=== PATIENT | female | born 1975 | race Caucasian/White ===

== ENCOUNTER 2017-01-26 08:51 | Emergency (ER) | payer BC ==
[2017-01-26] MEDS ORDERED: ONDANSETRON 4 MG TAB.RAPDIS PO ONE (09:32)
[2017-01-26] MEDS ORDERED: OXYCODONE-ACETAMINOPHEN 5-325 MG TABLET PO ONE (09:32)
--- NOTE | 2017-01-26 09:43 | ER Document Report ---
ED Flu Like - General Chief Complaint: Flu Symptoms Stated Complaint: POSSIBLE FLU SYMPTOMS Notes: 41 yo female c/o body aches, fever, left sided chest pain x 2 days. pt describes pain as a "cramp" around my heart. hurts to cough, deep breathe. pt did not get a flu shot this year. pt reports was recently ill with similar symptoms, otherwise no known sick contacts. pt has hx/o "borderline" diabetic, but no meds. no hx/o HTN TRAVEL OUTSIDE OF THE [place] IN LAST 30 DAYS: No - HPI Timing/Duration: Constant Quality of pain: Achy Pain Level: 4 Shortness of breath: Mild Associated symptoms: Body/muscle aches, Chest pain, Nonproductive cough, Fever, Headache. denies: Nausea, Vomiting Similar symptoms previously: No Recently seen / treated by doctor: No - Related Data Allergies/Adverse Reactions: codeine Allergy (Verified 01/26/17 08:59) Past Medical History - General Information source: Patient - Social History Smoking Status: Current Some Day Smoker Frequency of alcohol use: None Drug Abuse: None Lives with: Spouse/Significant other Family History: Reviewed & Not Pertinent Patient has suicidal ideation: No Patient has homicidal ideation: No Endocrine Medical History: Reports: Hx Diabetes Mellitus Type 2 - borderline Surgical Hx: Negative Review of Systems - Review of Systems Constitutional: See HPI, Chills, Fever EENT: Nose congestion, Nose discharge, Sinus pressure Cardiovascular: See HPI - pleuritic in nature, Chest pain Respiratory: Cough, Hurts to breathe Gastrointestinal: No symptoms reported Genitourinary: No symptoms reported Female Genitourinary: No symptoms reported Musculoskeletal: No symptoms reported Skin: No symptoms reported Hematologic/Lymphatic: No symptoms reported Neurological/Psychological: No symptoms reported Physical Exam - Vital signs Vitals: Temp Pulse Resp BP Pulse Ox 101.9 F H 104 H 16 120/64 96 01/26/17 08:59 01/26/17 08:59 01/26/17 08:59 01/26/17 08:59 01/26/17 08:59 Interpretation: Tachycardic, Febrile - General General appearance: Alert In distress: Mild - mildly ill looking - HEENT Head: Normocephalic, Atraumatic Eyes: Normal Conjunctiva: Normal Pupils: PERRL Tympanic membrane: Normal Mouth/Lips: Normal Pharynx: Normal, Post nasal drainage. No: Potential airway comprom. Neck: Normal, Supple - Respiratory Respiratory status: No respiratory distress Chest status: Tender - left anterior chest wall, Pain with deep breathing. No: No pleuritic chest pain - + pleuritic chest pain Breath sounds: Normal Chest palpation: Normal - Cardiovascular Rhythm: Regular Heart sounds: Normal auscultation Murmur: No - Abdominal Inspection: Normal Distension: No distension Bowel sounds: Normal Tenderness: Nontender Organomegaly: No organomegaly - Back Back: Normal, Nontender - Extremities General upper extremity: Normal inspection, Nontender, Normal color, Normal ROM , Normal temperature General lower extremity: Normal inspection, Nontender, Normal color, Normal ROM , Normal temperature, Normal weight bearing. No: Xiomara's sign - Neurological Neuro grossly intact: Yes Cognition: Normal Orientation: AAOx4 [place] Coma Scale Eye Opening: Spontaneous [place] Coma Scale Verbal: Oriented [place] Coma Scale Motor: Obeys Commands [place] Coma Scale Total: 15 Speech: Normal Motor strength normal: LUE, RUE, LLE, RLE Sensory: Normal - Psychological Associated symptoms: Normal affect, Normal mood - Skin Skin Temperature: Warm Skin Moisture: Dry Skin Color: Normal Course - Re-evaluation Re-evalutation: 01/26/17 09:49 pt evaluated. H&P c/w viral illness. pt's chest discomfort is pleuritic in nature, hurts any deep breath or cough. EKG, CXR and rapid flu pending. pt medicated for discomfort. will continue to monitor 01/26/17 10:04 EKG showing NSR, rate 99. no ectopy. no ST elevation. results reviewed with patient 01/26/17 10:18 chest xray showing multilobar infiltrates left lung field. reviewed xray with Dr Mcelroy. Recommends coverage with PO Levaquin. First dose ordered now 01/26/17 10:48 rapid flu negative. pt ambulatory without difficulty. not hypoxic. Sat 96%. VSS pt stable for out patient treatment and agreeable with plan - Vital Signs Vital signs: Temp Pulse Resp BP Pulse Ox 101.9 F H 104 H 16 120/64 96 01/26/17 08:59 01/26/17 08:59 01/26/17 08:59 01/26/17 08:59 01/26/17 08:59 Discharge - Discharge Clinical Impression: Pneumonia Qualifiers: Pneumonia type: due to unspecified organism Laterality: left Lung location: unspecified part of lung Qualified Code(s): J18.9 - Pneumonia, unspecified organism Condition: Stable Disposition: HOME, SELF-CARE Instructions: Pneumonia ([facility]), Antibiotic Therapy ([facility]), Cough Suppressant & Expectorant Medications Additional Instructions: Your chest xray is showing 2 areas of pneumonia in your left lung I am treating you with an oral antibiotic and cough medication I recommend taking OTC Mucinex in addition to prescribed meds Rest and hydration are important to your recovery Please establish with a primary care provider Return to ER for any worsening of your status Prescriptions: Hydrocodone/Chlorphen P-Stirex [Tussionex Pennkinetic Susp] 10 ml PO BID PRN # 200 ml PRN Reason: Levofloxacin [Levaquin 750 mg Tablet] 750 mg PO DAILY #10 tablet Ondansetron HCl [Zofran 4 mg Tablet] 1 tab PO Q4H PRN #10 tablet PRN Reason:
[2017-01-26] MEDS ORDERED: LEVOFLOXACIN 750 MG TABLET PO ONE (10:19)
--- NOTE | 2017-01-26 10:51 | EKG REPORT ---
SEVERITY:- NORMAL ECG - SINUS RHYTHM : Confirmed by: Nicolasa Ridley 26-Jan-2017 10:50:11
[2017-01-26 11:18] VITALS: BP 127/74
== END 2017-01-26 11:18 | disposition home or self-care (01) ==
LOC: ER 08:51
DX: J18.9 Pneumonia, unspecified organism (principal); R07.81 Pleurodynia; M79.1 Myalgia; R05 Cough; R50.9 Fever, unspecified; R51 Headache; Z88.5 Allergy status to narcotic agent; F17.200 Nicotine dependence, unspecified, uncomplicated; R00.0 Tachycardia, unspecified
CPT/HCPCS: 93005; 99284; 87040; 87070; 87205; 87077; 87186; 87804; 71020; 93010; S0119

== ENCOUNTER 2017-09-28 10:21 | Observation (INO) | payer BC ==
--- NOTE | 2017-09-28 10:50 | ER Document Report ---
ED Medical Screen (RME) - General Chief Complaint: Breathing Difficulty Stated Complaint: DIFFICULTY BREATHING Time Seen by Provider: 09/28/17 10:48 Mode of Arrival: Ambulatory Information source: Patient TRAVEL OUTSIDE OF THE [place] IN LAST 30 DAYS: No - HPI Patient complains to provider of: sob Onset: Other - pt with c/o sob and recurrent cough for the past few days. Continues to smoke - Related Data Allergies/Adverse Reactions: codeine Allergy (Verified 09/28/17 10:22) Home Medications: Current Home Medications Unobtainable [Unobtainable] 09/28/17 [History] Past Medical History - Social History Chew tobacco use (# tins/day): No Frequency of alcohol use: None Drug Abuse: None Endocrine Medical History: Reports: Hx Diabetes Mellitus Type 2 - borderline Renal/ Medical History: Denies: Hx Peritoneal Dialysis Physical Exam - Vital signs Vitals: Temp Pulse Resp BP Pulse Ox 98.9 F 91 21 H 149/81 H 93 09/28/17 10:26 09/28/17 10:26 09/28/17 10:26 09/28/17 10:26 09/28/17 10:26 Course - Vital Signs Vital signs: Temp Pulse Resp BP Pulse Ox 98.9 F 91 21 H 149/81 H 93 09/28/17 10:26 09/28/17 10:26 09/28/17 10:26 09/28/17 10:26 09/28/17 10:26
--- NOTE | 2017-09-28 11:35 | RADIOLOGY REPORT (SQ) ---
EXAM DESCRIPTION: CHEST PA/LAT COMPLETED DATE/TIME: 09/28/2017 11:27 am REASON FOR STUDY: SOB COMPARISON: 10/28/2016 EXAM PARAMETERS: NUMBER OF VIEWS: two views TECHNIQUE: Digital Frontal and Lateral radiographic views of the chest acquired. RADIATION DOSE: NA LIMITATIONS: none FINDINGS: LUNGS AND PLEURA: Chronic changes at the left base. Right lung is clear. MEDIASTINUM AND HILAR STRUCTURES: No masses or contour abnormalities. HEART AND VASCULAR STRUCTURES: Heart normal size. No evidence for failure. BONES: No acute findings. HARDWARE: None in the chest. OTHER: No other significant finding. IMPRESSION: Chronic changes at the left base. TECHNICAL DOCUMENTATION: JOB ID: [id number] [employer]- All Rights Reserved
[2017-09-28 11:37] LABS: ABSOLUTE BASOPHILS # (AUTO) 0.1 10^3/uL (0.0-0.2); ABSOLUTE EOSINOPHILS # (AUTO) 0.3 10^3/uL (0.0-0.6); ABSOLUTE LYMPHOCYTES (AUTO) 1.4 10^3/uL (0.5-4.7); ABSOLUTE MONOCYTES (AUTO) 0.5 10^3/uL (0.1-1.4); ABSOLUTE NEUT (AUTO) 6.8 10^3/uL (1.7-8.2); BASOPHILS % (AUTO) 0.6 % (0-2); EOSINOPHILS % (AUTO) 3.1 % (0-6); HEMATOCRIT 37.9 % (36.0-47.0); HEMOGLOBIN 12.8 g/dL (12.0-15.5); HGB HCT DIFFERENCE 0.5; LYMPHOCYTES % (AUTO) 15.2 % (13-45); MEAN CORPUSCULAR HGB CONC 33.8 g/dL (32.0-36.0); MEAN CORPUSCULAR VOLUME 86 fl (80-97); MONOCYTES % (AUTO) 5.1 % (3-13); RED BLOOD COUNT 4.43 10^6/uL (3.72-5.28); WHITE BLOOD COUNT 8.9 10^3/uL (4.0-10.5)
[2017-09-28 11:40] LABS: APPEARANCE,URINE CLEAR; BILIRUBIN,URINE NEGATIVE (NEGATIVE); GLUCOSE, URINE NEGATIVE (NEGATIVE); KETONES,URINE NEGATIVE (NEGATIVE); LEUKOCYTE ESTERASE,URINE NEGATIVE (NEGATIVE); NITRITE,URINE NEGATIVE (NEGATIVE); PROTEIN,URINE NEGATIVE (NEGATIVE); URINE SPECIFIC GRAVITY 1.011; UROBILINOGEN,URINE NEGATIVE mg/dL (<2.0)
[2017-09-28 11:53] LABS: ALANINE AMINOTRANSFERASE 37 U/L (9-52); ALKALINE PHOSPHATASE 94 U/L (38-126); ANION GAP 14 (5-19); ASPARTATE AMINO TRANSFERASE 19 U/L (14-36); BILIRUBIN,DIRECT 0.5 mg/dL (0.0-0.4); BLOOD UREA NITROGEN 10 mg/dL (7-20); CALCIUM 9.5 mg/dL (8.4-10.2); CARBON DIOXIDE 25 mmol/L (22-30); CHLORIDE 102 mmol/L (98-107); CREATININE RESULT 0.69 mg/dL (0.52-1.25); GLUCOSE 120 mg/dL (75-110); POTASSIUM 4.4 mmol/L (3.6-5.0); SODIUM 141.2 mmol/L (137-145); TOTAL PROTEIN 7.5 g/dL (6.3-8.2)
[2017-09-28] MEDS ORDERED: METHYLPREDNISOLONE INJ 125 MG/2 ML SDV IV ONE (12:08)
--- NOTE | 2017-09-28 12:13 | ER Document Report ---
ED Respiratory Problem - General Chief Complaint: Breathing Difficulty Stated Complaint: DIFFICULTY BREATHING Time Seen by Provider: 09/28/17 10:48 Mode of Arrival: Ambulatory Information source: Patient Notes: 42-year-old female who states she has had some cough and congestion for the last week and a half. She actually states she has not felt better since being diagnosed last January with a pneumonia. Patient states over this last week she has not had any fevers but has had a greenish to davis cough without chest pain or leg swelling. She denies any orthopnea or paroxysmal nocturnal dyspnea. She denies any leg swelling. She denies any chest pain, recent trips or travel. Patient does admit to being a smoker. TRAVEL OUTSIDE OF THE [place] IN LAST 30 DAYS: No - HPI Patient complains to provider of: Cough, Short of breath Onset: Other - See above Duration: Better Initiating Event: Other - See above Quality of pain: No pain Severity: Mild Pain Level: 1 Context: Other - See above Short of Breath: Mild Cough: Productive Sputum amount: Scant Sputum color: Davis, Green At home treatment: denies: Bronchodilators Associated symptoms: Other - See above Similar symptoms previously: Yes Recently seen / treated by doctor: Yes - Related Data Allergies/Adverse Reactions: codeine Allergy (Verified 09/28/17 10:22) Home Medications: Current Home Medications Unobtainable [Unobtainable] 09/28/17 [History] Past Medical History - General Information source: Patient - Social History Smoking Status: Current Every Day Smoker Cigarette use (# per day): Yes Chew tobacco use (# tins/day): No Smoking Education Provided: Yes Frequency of alcohol use: None Drug Abuse: None Family History: Reviewed & Not Pertinent Patient has suicidal ideation: No Patient has homicidal ideation: No Endocrine Medical History: Reports: Hx Diabetes Mellitus Type 2 - borderline Renal/ Medical History: Denies: Hx Peritoneal Dialysis Review of Systems - Review of Systems Constitutional: denies: Fever EENT: Nose congestion, Nose discharge. denies: Eye discharge Cardiovascular: denies: Chest pain Respiratory: Cough, Short of breath, Sputum, Wheezing. denies: Hemoptysis Gastrointestinal: denies: Vomiting Genitourinary: denies: Dysuria Musculoskeletal: denies: Leg swelling Skin: Other - no hives. denies: Rash Neurological/Psychological: Other - no slurred speech -: Yes All other systems reviewed and negative Physical Exam - Vital signs Vitals: Temp Pulse Resp BP Pulse Ox 98.9 F 91 21 H 149/81 H 93 09/28/17 10:26 09/28/17 10:09/28/17 10:09/28/17 10:09/28/17 10: Notes: Reviewed vital signs and nursing note as charted by RN. CONSTITUTIONAL: Alert and oriented and responds appropriately to questions. Well -appearing; well-nourished HEAD: Normocephalic; atraumatic EYES: PERRL; Conjunctivae clear, sclerae non-icteric ENT: Normal nose; bilateral nonpurulent nasal rhinorrhea; moist mucous membranes ; pharynx without lesions noted NECK: Supple without meningismus; non-tender; no cervical lymphadenopathy, no masses CARD: Regular rate and rhythm; no murmurs, no clicks, no rubs, no gallops; symmetric distal pulses RESP: Normal chest excursion without splinting or tachypnea; breath sounds clear and equal bilaterally; minimal and expiratory wheezing without rales or rhonchi present ABD/GI: Normal bowel sounds; non-distended; soft, non-tender; no masses or palpable fluid wave. Elevated BMI BACK: The back appears normal and is non-tender to palpation, there is no CVA tenderness EXT: Normal ROM in all joints; non-tender to palpation; no cyanosis, no effusions, no edema SKIN: Normal color for age and race; warm; no acute lesions noted NEURO: Moves all extremities equally; Motor and sensory function intact PSYCH: The patient's mood and manner are appropriate. Grooming and personal hygiene are appropriate. Course - Re-evaluation Re-evalutation: Given the history and physical examination I will order an x-ray of the chest, basic labs, BNP, and reassess. I do believe that the patient has signs and symptoms of possibly acute bronchitis. I have had a talk with the patient about the importance of quitting smoking. Patient states she understands this that she has had multiple family members with COPD. 09/28/17 12:13 X-ray of the chest as recorded. 09/28/17 13:03 BNP is slightly elevated. X-ray of the chest shows a persistent left lower lobe abnormality. This is unchanged from the previous x-ray. The patient's left upper lobe abnormality has cleared since prior x-ray. Given the patient's prolonged symptomatology I will order a CT of the chest with IV contrast as well as an on an EKG. 09/28/17 14:33 EKG shows a heart of 86, normal sinus rhythm, normal axis, no obvious ST elevation or depression. 09/28/17 15:27 CT scan of the chest shows bilateral pleural effusions. Left lower lobe possible mass. Patient states she is unable to sleep laying flat at night. She states this has been worse over the last 3 days. I called and spoke to the security sme Dr. Guerrero, who states that he is able to see the patient in the hospital. I attempted to manage this more as an outpatient and even called a local physician here Dr. Blanton. He was concerned that it may take a prolonged amount of time to see and work up the patient as an outpatient. Family is not comfortable going home at this time. Patient will be admitted to the hospitalist service. - Vital Signs Vital signs: Temp Pulse Resp BP Pulse Ox 98.9 F 91 18 149/81 H 98 09/28/17 10:26 09/28/17 10:26 09/28/17 12:00 09/28/17 10:26 09/28/17 12:00 - Laboratory Result Diagrams: 09/28/17 11:15 09/28/17 11:15 Laboratory results interpreted by me: 09/28/17 09/28/17 09/28/17 11:15 11:15 11:15 RDW 15.0 H Glucose 120 H Direct Bilirubin 0.5 H NT-Pro-B Natriuret Pep Urine Blood SMALL H 09/28/17 11:15 RDW Glucose Direct Bilirubin NT-Pro-B Natriuret Pep 552 H Urine Blood Discharge - Discharge Clinical Impression: Bilateral pleural effusion, Mass of left lung Condition: Fair Disposition: ADMITTED INPATIENT Admitting Provider: Hospitalist Unit Admitted: Medical Floor
[2017-09-28] MEDS: IPRATROPIUM/ALBUTEROL 0.5-2.5 MG/3 ML AMPUL NEB SCH ×3 (12:16→13:05)
--- NOTE | 2017-09-28 13:43 | RADIOLOGY REPORT (SQ) ---
EXAM DESCRIPTION: CT CHEST WITH COMPLETED DATE/TIME: 09/28/2017 1:31 pm REASON FOR STUDY: 7, persistent cough and intermittent SOB with LLL COMPARISON: None. TECHNIQUE: CT scan of the chest performed using helical scanning technique with dynamic intravenous contrast injection. Images reviewed with lung, soft tissue and bone windows. Reconstructed coronal and sagittal MPR images reviewed. All images stored on PACS. All CT scanners at this facility use dose modulation, iterative reconstruction, and/or weight based d osing when appropriate to reduce radiation dose to as low as reasonably achievable (ALARA). [facility]: Dose Right [facility]: CareDose [facility]: Dose Right [facility]: Teradose 4D [facility]: Field Squared CONTRAST TYPE AND DOSE: contrast/concentration: Isovue 370.00 mg/ml; Total Contrast Delivered: 80.0 ml; Total Saline Delivered: 55.0 ml RENAL FUNCTION: None required. The patient is less than 50 years old. RADIATION DOSE: . LIMITATIONS: None. FINDINGS: LUNGS AND PLEURA: Moderate left pleural effusion. Small opacity at the left base. Minima l right pleural effusion. HILAR AND MEDIASTINAL STRUCTURES: No identified masses or abnormal nodes. HEART AND VASCULAR STRUCTURES: No aneurysm or dissection. No central pulmonary emboli. No pericardi al effusion. HARDWARE: None in the chest. UPPER ABDOMEN: No significant findings. Limited exam. THYROID AND OTHER SOFT TISSUES: No masses. No adenopathy. BONES: No significant finding. OTHER: No other significant finding. IMPRESSION: Moderate left pleural effusion with left basilar opacity. Minimal right pleural effusio n. TECHNICAL DOCUMENTATION: JOB ID: [id number] Quality ID # [id number]: Final reports with documentation of one or more dose reduction techniques (e.g., Au tomated exposure control, adjustment of the mA and/or kV according to patient size, use of iterative reconstruction technique) 2010 [employer]- All Rights Reserved
[2017-09-28] MEDS ORDERED: ACETAMINOPHEN 325 MG TABLET PO PRN (16:31)
--- NOTE | 2017-09-28 16:31 | PDOC H&P ---
History of Present Illness Admission Date/PCP: Date of admission 09/28/2017. The patient currently does not have a primary care provider. Patient complains of: Difficulty breathing and a chronic cough. History of Present Illness: CARLOTTA MARTE is a 42 year old female. She was well until January of this year. In January the patient woke up with a fever 1 day and began having a productive cough. Since January she has complained of a daily productive cough. She brings up ayala to green sputum. Occasionally, her sputum has brown flecks in it which she describes as coffee grounds but there is no bright red blood. Over the last 3 days the patient has had increasing shortness of breath. Her shortness of breath is associated with orthopnea and paroxysmal nocturnal dyspnea. She has been jerking herself awake at night because she is unable to breathe. In fact, she is afraid to sleep at night. She describes a headache on the top of her head. She feels as if her head is going to implode and not explode. She is also complaining of pain in the sides of her chest the lower ribs, she has anterior chest pain which is sharp in nature and worse with breathing or coughing. She has not had a fever during this current illness. She states that her symptoms are different than previous episodes of bronchitis. The patient is a current every day smoker. In the emergency department the patient had a CT scan that demonstrates bilateral effusions left greater than right. She also has an elevated BNP and she appears to have heart failure. Past Medical History Endocrine Medical History: Reports: Diabetes Mellitus Type 2 - borderline Psychiatric Medical History: Reports: General Anxiety Disorder, Other - Borderline personality disorder Past Surgical History Past Surgical History: Tonsillectomy, cholecystectomy, partial hysterectomy, mesh implant of the bladder and bilateral tubal ligation. Social History Smoking Status: Current Every Day Smoker Frequency of Alcohol Use: None Hx Recreational Drug Use: No Drugs: None Hx Prescription Drug Abuse: No - Advance Directive Resuscitation Status: Full Code Surrogate healthcare decision maker:: The patient elects for her , Toby Marte to be her surrogate decision maker. His phone number is area code [phone]. Family History Family History: Reviewed & Not Pertinent Parental Family History Reviewed: Yes Children Family History Reviewed: Yes Sibling(s) Family History Reviewed.: Yes - The patient's parents both of complications of emphysema. Her mother in her early 60s and her father in his late 70s. Her father also had secondary diabetes. Her mother had a history of congestive heart failure and her maternal grandmother had an SD in her late 70s. Medication/Allergy Home Medications: Unobtainable [Unobtainable] 09/28/17 Allergies/Adverse Reactions: codeine Allergy (Verified 09/28/17 10:22) Review of Systems Constitutional: ABSENT: chills, fever(s), headache(s), weight gain, weight loss Eyes: ABSENT: visual disturbances Ears: ABSENT: hearing changes Nose, Mouth, and Throat: ABSENT: as per HPI, headache(s), mouth pain, sore throat, vertigo, other Breasts: ABSENT: as per HPI, other Cardiovascular: PRESENT: as per HPI Respiratory: PRESENT: as per HPI Gastrointestinal: PRESENT: abdominal pain, bloating, constipation, diarrhea, other Genitourinary: ABSENT: dysuria, hematuria Musculoskeletal: ABSENT: joint swelling Integumentary: PRESENT: diaphoresis Neurological: ABSENT: abnormal gait, abnormal speech, confusion, dizziness, focal weakness, syncope Psychiatric: ABSENT: anxiety, depression, homidical ideation, suicidal ideation Endocrine: ABSENT: cold intolerance, heat intolerance, polydipsia, polyuria Hematologic/Lymphatic: ABSENT: easy bleeding, easy bruising Allergic/Immunologic: ABSENT: as per HPI, seasonal rhinorrhea, other Physical Exam Vital Signs: Temp Pulse Resp BP Pulse Ox 98.9 F 91 20 141/84 H 93 09/28/17 10:26 09/28/17 10:26 09/28/17 16:00 09/28/17 12:01 09/28/17 16:00 Intake & Output 09/27/17 09/28/17 09/29/17 06:59 06:59 06:59 Weight 130.8 kg Additional comments: The patient is a morbidly obese white female. She appears to be in mild distress. Her cheeks are noted to be severely flushed. Her facial appearance is otherwise normal. Her oropharynx demonstrates a Mallampati 3 airway. Her neck is supple. No JVD is present. Trachea is midline. Thyroid is nonpalpable. Her lungs are fairly clear anteriorly. She also has clear lung rodas posteriorly but her lung sounds are diminished in the bases left greater than right. The cardiac exam is distant but regular. I do not appreciate any murmurs, gallops or rubs. The abdomen is obese but soft. Bowel sounds are present. There is no guarding or rebound noted and there are no hernias or masses present. The lower extremities demonstrate trace to 1+ pitting edema. The skin is otherwise warm, dry and intact without lesions or rashes. Results Laboratory Results: 09/28/17 11:15 09/28/17 11:15 09/28/17 09/28/17 09/28/17 11:15 11:15 11:15 WBC 8.9 RBC 4.43 Hgb 12.8 Hct 37.9 MCV 86 MCH 29.0 MCHC 33.8 RDW 15.0 H Plt Count 291 Seg Neutrophils % 76.0 Lymphocytes % 15.2 Monocytes % 5.1 Eosinophils % 3.1 Basophils % 0.6 Absolute Neutrophils 6.8 Absolute Lymphocytes 1.4 Absolute Monocytes 0.5 Absolute Eosinophils 0.3 Absolute Basophils 0.1 Sodium 141.2 Potassium 4.4 Chloride 102 Carbon Dioxide 25 Anion Gap 14 BUN 10 Creatinine 0.69 Est GFR ( Amer) > 60 Est GFR (Non-Af Amer) > 60 Glucose 120 H Calcium 9.5 Total Bilirubin 1.0 AST 19 ALT 37 Alkaline Phosphatase 94 Total Protein 7.5 Albumin 4.0 Urine Color YELLOW Urine Appearance CLEAR Urine pH 6.0 Ur Specific [place] 1.011 Urine Protein NEGATIVE Urine Glucose (UA) NEGATIVE Urine Ketones NEGATIVE Urine Blood SMALL H Urine Nitrite NEGATIVE Ur Leukocyte Esterase NEGATIVE Urine WBC (Auto) 0 Urine RBC (Auto) 0 09/28/17 09/28/17 11:15 11:15 Troponin I < 0.012 NT-Pro-B Natriuret Pep 552 H Impressions: Chest X-Ray 09/28/17 10:48 IMPRESSION: Chronic changes at the left base. Chest CT 09/28/17 12:50 IMPRESSION: Moderate left pleural effusion with left basilar opacity. Minimal right pleural effusion. Assessment & Plan - Diagnosis (1) Atypical chest pain Is this a current diagnosis for this admission?: Yes (2) Uncontrolled hypertension Is this a current diagnosis for this admission?: Yes (3) Obstructive sleep apnea Is this a current diagnosis for this admission?: Yes (4) Morbid obesity Is this a current diagnosis for this admission?: Yes (5) Chronic bronchitis Is this a current diagnosis for this admission?: Yes (6) Bilateral pleural effusion Is this a current diagnosis for this admission?: Yes (7) Tobacco abuse Is this a current diagnosis for this admission?: Yes - Time Time Spent: 50 to 70 Minutes - Inpatient Certification Medical Necessity: Need Close Monitoring Due to Risk of Patient Decompensation, Risk of Complication if Not Cared For in Hospital, Risk of Diagnosis Which Will Require Inpatient Eval/Care/Monitoring - Plan Summary Plan Summary: The patient presents with what appears to be congestive heart failure. I suspect that this is diastolic in nature. This may be secondary to valvular heart disease. This may be secondary to her morbid obesity and presumed obstructive sleep apnea. The patient also may have a component of chronic bronchitis from tobacco abuse. The patient will be admitted to observation status. She will receive intravenous Lasix. She will be ruled out with cardiac enzymes as ischemia could be a precipitating factor. She will need an echocardiogram. I do not see a mass in the patient's CT scan, but, the emergency department physician has consulted Dr. Guerrero to determine if bronchoscopy is indicated. I would highly recommend that the patient be an panel to primary care provider at discharge. She will need management of her uncontrolled hypertension. I would strongly recommend that she have a sleep study. The patient does use [id number] ibuprofen on a very frequent basis and I told her that this could also aggravate diastolic congestive heart failure and hypertension. She is agreeable to discontinuing this medication. Smoking cessation counseling was provided as well.
[2017-09-28] MEDS ORDERED: HYDRALAZINE HCL INJ/PF 20 MG/1 ML SDV IV PRN (16:40)
--- NOTE | 2017-09-28 16:42 | Progress Note ---
Provider Note Provider Note: Patient was also noted to have hematuria on urinalysis. She is a smoker. I told her that this needs to be followed up after discharge and discussed with a primary care doctor.
[2017-09-28] MEDS ORDERED: FUROSEMIDE INJ/PF 20 MG/2 ML SDV IV ONE (17:30)
[2017-09-28] MEDS ORDERED: INFLUENZA ADLT QUAD (36MOS+) 2017-18 VAC 0.5 ML SYR IM PRN (20:29)
[2017-09-28] MEDS: FAMOTIDINE 20 MG TABLET PO SCH (21:11)
[2017-09-28] MEDS ORDERED: FUROSEMIDE INJ/PF 20 MG/2 ML SDV IV SCH (22:00)
--- NOTE | 2017-09-28 22:42 | EKG REPORT ---
SEVERITY:- ABNORMAL ECG - SINUS RHYTHM GIRMA, CONSIDER BIATRIAL ABNORMALITIES : Confirmed by: Nicolasa Ridley 28-Sep-2017 22:41:17
[2017-09-29 05:39] LABS: ANION GAP 12 (5-19); BLOOD UREA NITROGEN 17 mg/dL (7-20); CALCIUM 10.1 mg/dL (8.4-10.2); CARBON DIOXIDE 22 mmol/L (22-30); CHLORIDE 104 mmol/L (98-107); CREATININE RESULT 0.72 mg/dL (0.52-1.25); GLUCOSE 175 mg/dL (75-110); PHOSPHORUS 3.1 mg/dL (2.5-4.5); POTASSIUM 4.8 mmol/L (3.6-5.0); SODIUM 138.3 mmol/L (137-145)
--- NOTE | 2017-09-29 08:51 | EKG REPORT ---
SEVERITY:- BORDERLINE ECG - SINUS RHYTHM PROBABLE LEFT ATRIAL ABNORMALITY : Confirmed by: Nicolasa Ridley 29-Sep-2017 08:51:03
--- NOTE | 2017-09-29 09:06 | Physician Advisory Note ---
Physician Advisor ProgressNote .: Pursuant to the plan for [facility], I have reviewed the medical record for this patient. Physician Advisor Statement: Please consider documenting, if you agree: 1. "Acute CHF, suspect diastolic ..." - Attending has nicely documented evidence supporting acute CHF dx: PND, orthopnea, BLE edema. CT shows bilateral pleural effusions. BNP 552. Status: appropriately brought in as Outpt Obs. If pt continues to have significant clinical issues ongoing on 09/29, please document issues & attending concerns/pt risks. Thanks! CK
[2017-09-29] MEDS ORDERED: FAMOTIDINE 20 MG TABLET PO SCH (10:00)
[2017-09-29] MEDS ORDERED: ENOXAPARIN SODIUM INJ 40 MG/0.4 ML DISP.SYRIN SUBCUT SCH (10:00)
[2017-09-29] MEDS ORDERED: FUROSEMIDE INJ/PF 20 MG/2 ML SDV IV SCH (10:00)
[2017-09-29] MEDS: FAMOTIDINE 20 MG TABLET PO SCH (10:26)
--- NOTE | 2017-09-29 17:16 | XCELERA REPORT ---
[address] [address] Transthoracic Echocardiogram Report Name: CARLOTTA BAL Age: 42 yrs Gender: Female : 1975 Patient Status: Inpatient Patient Location: [address] [place] [address] Study Date: 09/29/2017 02:20 PM Height: 63 in Weight: 288 lb BSA: 2.3 m2 Procedure: A two-dimensional transthoracic echocardiogram with color flow and Doppler was performed. The study was technically limited with all images being suboptimal in quality. Reason For Study: CHF History: CHF. Ordering Physician: YOVANI CASTILLO Performed By: Shagufta Sampson Interpretation Summary The left ventricle is normal in size. There is normal left ventricular wall thickness. LV EF is > tthan 60% Left ventricular systolic function is normal. Doppler measurements suggest normal left ventricular diastolic function The left ventricular wall motion is normal. There is no thrombus. The right ventricle is not well visualized secondary to technical limitations The left and right artia are mildly dilated There is no evidence of mitral valve prolapse. There is no vegetation seen on the mitral valve. There is mild mitral stenosis There is a mild amount of mitral regurgitation There is no aortic valve stenosis There is no LVOT obstruction. There is no tricuspid stenosis. Poor doppler interogation of tricuspid valve.Probably mild TR.No TR jet measurement ,hence RVSP not calculated. There is no pericardial effusion. MMode/2D Measurements & Calculations RVDd: 3.3 cm LVIDd: 5.7 cm FS: 40.4 % Ao root diam: 2.4 cm IVSd: 1.0 cm LVIDs: 3.4 cm EDV(Teich): 157.0 ml LVPWd: 0.99 cm ESV(Teich): 46.3 ml Ao root area: 4.6 cm2 EF(Teich): 70.5 % LA dimension: 4.4 cm Doppler Measurements & Calculations MV E max tomasz: MV P1/2t max tomasz: Ao V2 max: LV V1 max P.7 cm/sec 244.7 cm/sec 155.6 cm/sec 6.5 mmHg MV A max tomasz: MV P1/2t: 139.8 msec Ao max PG: LV V1 max: 192.0 cm/sec 9.7 mmHg 127.8 cm/sec MV E/A: 1.3 MVA(P1/2t): 1.6 cm2 MV dec slope: 512.8 cm/sec2 PA V2 max: 99.7 cm/sec PA max P.0 mmHg Left Ventricle The left ventricle is normal in size. There is normal left ventricular wall thickness. LV EF is > tthan 60%. Left ventricular systolic function is normal. Doppler measurements suggest normal left ventricular diastolic function. The left ventricular wall motion is normal. There is no thrombus. Right Ventricle The right ventricle is not well visualized secondary to technical limitations. Atria Right atrium not well visualized secondary to technical limitations. The left and right artia are mildly dilated. Mitral Valve There is mild to moderate mitral annular calcification. There is no evidence of mitral valve prolapse. There is no vegetation seen on the mitral valve. There is mild mitral stenosis. There is a mild amount of mitral regurgitation. Aortic Valve There is no aortic valvular vegetation. There is no aortic valve stenosis. There is no LVOT obstruction. No aortic regurgitation is present. Tricuspid Valve There is no tricuspid stenosis. Poor doppler interogation of tricuspid valve.Probably mild TR.No TR jet measurement ,hence RVSP not calculated. Pulmonic Valve There is no pulmonic valvular stenosis. There is no pulmonic valvular regurgitation. Great Vessels The aortic root is not well visualized but is probably normal size. Effusions There is no pericardial effusion. : YOVANI CASTILLO > Lily Callahan
--- NOTE | 2017-09-29 17:49 | PDOC DISCHARGE SUMMARY ---
General - Admit/Disc Date/PCP Admission Date/Primary Care Provider: 09/28/17 16:48 Discharge Date: 09/29/17 - Discharge Diagnosis (1) Atypical chest pain Is this a current diagnosis for this admission?: Yes (2) Uncontrolled hypertension Is this a current diagnosis for this admission?: Yes (3) Obstructive sleep apnea Is this a current diagnosis for this admission?: Yes (4) Morbid obesity Is this a current diagnosis for this admission?: Yes (5) Chronic bronchitis Is this a current diagnosis for this admission?: Yes (6) Bilateral pleural effusion Is this a current diagnosis for this admission?: Yes (7) Tobacco abuse Is this a current diagnosis for this admission?: Yes (8) Hematuria Is this a current diagnosis for this admission?: Yes (9) Abnormal TSH Is this a current diagnosis for this admission?: Yes - Additional Information Resuscitation Status: Full Code Discharge Diet: Cardiac Discharge Activity: Activity As Tolerated, Balance Activity w/Rest, Weigh Daily Home Medications: Furosemide [Lasix 20 mg Tablet] 20 mg PO DAILY 14 Days #14 tablet 09/29/17 Omeprazole 20 mg PO QHS 09/29/17 History of Present Illness History of Present Illness: CARLOTTA BAL is a 42 year old female. She was well until January of this year. In January the patient woke up with a fever 1 day and began having a productive cough. Since January she has complained of a daily productive cough. She brings up ayala to green sputum. Occasionally, her sputum has brown flecks in it which she describes as coffee grounds but there is no bright red blood. Over the last 3 days the patient has had increasing shortness of breath. Her shortness of breath is associated with orthopnea and paroxysmal nocturnal dyspnea. She has been jerking herself awake at night because she is unable to breathe. In fact, she is afraid to sleep at night. She describes a headache on the top of her head. She feels as if her head is going to implode and not explode. She is also complaining of pain in the sides of her chest the lower ribs, she has anterior chest pain which is sharp in nature and worse with breathing or coughing. She has not had a fever during this current illness. She states that her symptoms are different than previous episodes of bronchitis. The patient is a current every day smoker. In the emergency department the patient had a CT scan that demonstrates bilateral effusions left greater than right. She also has an elevated BNP and she appears to have heart failure. Hospital Course Hospital Course: The patient was admitted with uncontrolled hypertension. She had evidence of bilateral pleural effusions likely secondary to volume overload from uncontrolled hypertension. She ruled out for myocardial infarction by cardiac enzymes (troponins). The patient did have an echocardiogram performed. This did demonstrate an elevated ejection fraction greater than 60%, however, there was not evidence of diastolic dysfunction. Patient was noted to have mild mitral stenosis. During this hospitalization the patient has several factors that indicate that she likely has obstructive sleep apnea. This was discussed with the patient. I have recommended that she have a sleep study after discharge. Laboratory data are significant for a mildly reduced TSH. I would recommend repeating this in 4-6 weeks. The patient was also told that she has microscopic hematuria. Because she is a smoker this will also need to be followed up. During this hospitalization the patient had both a chest x-ray and a CT scan. The patient has bilateral pleural effusions left greater than right. She appears to have a component of atelectasis in the left base. This does not appear to be a lung mass. However, we will have the patient follow-up with Dr. Guerrero, a chemistry technical officer after discharge. The patient may also have a component of chronic bronchitis. She is a long-term smoker. She may benefit from pulmonary function testing and use of bronchodilators. In addition, as stated above I highly recommend that the patient get a sleep study. The patient will also need to be empanelled to a primary care provider if she has none at this time. The patient was counseled on tobacco cessation. Due to the bilateral pleural effusions I will discharge her on Lasix. She had a very good response to intravenous Lasix last night. I will not add supplemental potassium since her potassium this morning is 4.8. Physical Exam Vital Signs: Temp Pulse Resp BP Pulse Ox 98.2 F 62 18 139/72 H 95 09/29/17 11:57 09/29/17 14:00 09/29/17 11:57 09/29/17 11:57 09/29/17 17:11 Intake & Output 09/28/17 09/29/17 09/30/17 06:59 06:59 06:59 Intake Total 3449 458 Balance 1077 458 Weight 130.4 kg Additional comments: The patient is an obese white female. She is extremely pleasant. She does not appear to be in any distress. She states that she is feeling better when compared to last evening. Her face continues to be flushed, but otherwise it is normal. Her lungs are significantly improved. She has less rales when compared to last evening. Her cardiac exam is regular without murmurs, gallops or rubs. The abdomen is obese but soft. Bowel sounds are present in all 4 quadrants. The lower extremities are warm to touch. The patient has 1+ edema. Skin is warm, dry and intact without lesions or rashes. Results Laboratory Results: 09/29/17 05:10 09/29/17 09/29/17 05:10 05:10 Sodium 138.3 Potassium 4.8 Chloride 104 Carbon Dioxide 22 Anion Gap 12 BUN 17 Creatinine 0.72 Est GFR ( Amer) > 60 Est GFR (Non-Af Amer) > 60 Glucose 175 H Calcium 10.1 Phosphorus 3.1 TSH 0.45 L 09/28/17 09/28/17 09/29/17 17:00 23:00 05:10 Troponin I < 0.012 < 0.012 < 0.012 Impressions: Chest X-Ray 09/28/17 10:48 IMPRESSION: Chronic changes at the left base. Chest CT 09/28/17 12:50 IMPRESSION: Moderate left pleural effusion with left basilar opacity. Minimal right pleural effusion. Plan Discharge Plan: 1. The patient was counseled to follow a low-sodium diet. 2. The patient will need an appointment with a primary care provider in 1 week. The hospital will arrange this. 3. We will also arrange for the patient to see Dr. Guerrero regarding the findings on her chest CT scan. 4. The patient will be started on Lasix 20 mg p.o. once daily. She was not started on supplemental potassium secondary to a high normal potassium level during hospitalization. She will require laboratory follow-up. I anticipate that this medication will be changed to an alternate agent upon discharge and she will only be given a prescription for 14 days. Time Spent: Less than 30 Minutes
[2017-09-29 18:22] VITALS: BP 142/80
[2017-09-30] MEDS ORDERED: FUROSEMIDE 20 MG TABLET PO SCH (10:00)
== END 2017-09-29 19:00 | disposition home or self-care (01) ==
LOC: ER 10:21 → EH 16:48 → INTOOBSV 16:48 → 3S 20:27
PROVIDERS: ADMIT Internal Medicine; ATTEND Internal Medicine
DX: R07.89 Other chest pain (principal); I10 Essential (primary) hypertension; G47.33 Obstructive sleep apnea (adult) (pediatric); E66.01 Morbid (severe) obesity due to excess calories; J42 Unspecified chronic bronchitis; J90 Pleural effusion, not elsewhere classified; R31.29 Other microscopic hematuria; R94.6 Abnormal results of thyroid function studies; I05.0 Rheumatic mitral stenosis; F17.200 Nicotine dependence, unspecified, uncomplicated; R10.9 Unspecified abdominal pain; R14.0 Abdominal distension (gaseous); K59.00 Constipation, unspecified; R19.7 Diarrhea, unspecified; R23.2 Flushing; Z79.899 Other long term (current) drug therapy; Z90.49 Acquired absence of other specified parts of digestive tract; Z90.710 Acquired absence of both cervix and uterus; Z98.51 Tubal ligation status; Z96.0 Presence of urogenital implants; Z82.49 Family history of ischemic heart disease and other diseases of the circulatory system; Z83.3 Family history of diabetes mellitus; Z82.5 Family history of asthma and other chronic lower respiratory diseases; Z87.01 Personal history of pneumonia (recurrent); Z68.43 Body mass index [BMI] 50.0-59.9, adult
CPT/HCPCS: 93005 ×2; 94640 ×2; 99285; 96374; 36415 ×2; 84100; 84443; 85025; 80048; 80053; 81001; 84484 ×2; 83036; 87804; 83880; 93306; 71020; 71260; 93010 ×2; G0378 ×3; J1940 ×2; J2930; J1650; J3490 ×2; J7620

== ENCOUNTER → 2017-11-04 | Outpatient (CLI) | payer BC ==
[2017-11-04 12:11] LABS: ABSOLUTE BASOPHILS # (AUTO) 0.1 10^3/uL (0.0-0.2); ABSOLUTE EOSINOPHILS # (AUTO) 0.2 10^3/uL (0.0-0.6); ABSOLUTE LYMPHOCYTES (AUTO) 1.4 10^3/uL (0.5-4.7); ABSOLUTE MONOCYTES (AUTO) 0.5 10^3/uL (0.1-1.4); ABSOLUTE NEUT (AUTO) 8.1 10^3/uL (1.7-8.2); BASOPHILS % (AUTO) 0.9 % (0-2); EOSINOPHILS % (AUTO) 1.7 % (0-6); HEMOGLOBIN 13.9 g/dL (12.0-15.5); LYMPHOCYTES % (AUTO) 13.5 % (13-45); MEAN CORPUSCULAR HEMOGLOBIN 29.1 pg (27.0-33.4); MEAN CORPUSCULAR HGB CONC 33.8 g/dL (32.0-36.0); MEAN CORPUSCULAR VOLUME 86 fl (80-97); MONOCYTES % (AUTO) 5.2 % (3-13); PLATELET COUNT 349 10^3/uL (150-450); RED BLOOD COUNT 4.77 10^6/uL (3.72-5.28); RED CELL DISTRIBUTION WIDTH 14.6 % (11.5-14.0); SEGMENTED NEUTROPHILS % (AUTO) 78.7 % (42-78); TOTAL CELLS COUNTED % (AUTO) 100 %; WHITE BLOOD COUNT 10.3 10^3/uL (4.0-10.5)
[2017-11-04 12:56] LABS: FREE T4 (FREE THYROXINE) 1.15 ng/dL (0.78-2.19)
[2017-11-04 13:10] LABS: THYROID STIMULATING HORMONE 1.1 uIU/mL (0.47-4.68)
--- NOTE | 2017-11-04 15:12 | RADIOLOGY REPORT (SQ) ---
EXAM DESCRIPTION: CHEST PA/LATERAL COMPLETED DATE/TIME: 11/04/2017 12:22 pm REASON FOR STUDY: PLEURAL EFFUSION, NOT ELSEWHERE CLASSIFIED COMPARISON: 09/28/2017 EXAM PARAMETERS: NUMBER OF VIEWS: two views TECHNIQUE: Digital Frontal and Lateral radiographic views of the chest acquired. RADIATION DOSE: NA LIMITATIONS: none FINDINGS: LUNGS AND PLEURA: Small left pleural effusion, unchanged. Right lung is clear. MEDIASTINUM AND HILAR STRUCTURES: No masses or contour abnormalities. HEART AND VASCULAR STRUCTURES: Heart normal size. No evidence for failure. BONES: No acute findings. HARDWARE: None in the chest. OTHER: No other significant finding. IMPRESSION: Small left pleural effusion. TECHNICAL DOCUMENTATION: JOB ID: [id number] [employer]- All Rights Reserved
[2017-11-05 05:40] LABS: THYROXINE (T4) 7.7 ug/dL (4.5-12.0)
[2017-11-05 07:38] LABS: TRIIODOTHYRONINE (T3) 93 ng/dL (71-180)
== END ==
LOC: OD 10:48
PROVIDERS: ATTEND Physician Assistant
DX: J90 Pleural effusion, not elsewhere classified (principal); R94.6 Abnormal results of thyroid function studies; R05 Cough; J41.1 Mucopurulent chronic bronchitis
CPT/HCPCS: 36415; 71046; 84436; 84439; 84443; 84480; 85025; 87015; 87070; 87116; 87205; 87206

== ENCOUNTER → 2017-11-13 | Outpatient (CLI) | payer BC ==
--- NOTE | 2017-11-13 09:01 | ST Modified Barium Swallow ---
Recommendation - Recommendations Recommendations: No oral or pharyngeal swallowing deficits seen. May benefit from gastrointestinal consult due to nature of symptoms. Medical Diagnoses - Medical Diagnoses Medical Diagnosis Description & ICD-10 Code(s): R13.10 dysphagia unspecified Other Medical Diagnoses/Co-Morbidities: Patient reports bilateral pleural effusion and reflux. ST Modified Barium Swallow - General Date: 11/13/17 Risks/Precautions: None Reason for Referral: globus sensation, coughing after meals - History History obtained from: Patient -: Medical - Patient reports feeling of foods "sticking" in her throat, pointed to area just below the larynx. Specific foods that increase difficulties are popcorn, lettuce, and dry bread products. Also reports that at times she coughs after meals (1 hour) and food particles will come up. The patient states that she takes a daily acid telemetry tech, and that she was placed on 2 inhalers yesterday due to diagnosis of bilateral pleural effusion, first seen in September. Medications: Patient reports 2 inhalers, unable to give names, and daily acid telemetry tech, Omeprazole. Not a complete medication list. Allergies: per EMR: codeine. No food allergies reported. - Functional Status Prior Functional Status: INDEPENDENT: feeding - independent - Subjective Patient/caregiver goal(s): r/o aspiration Cognitive-Linguistic Function: WNL Speech Intelligibility: WNL Current Nutritional Means: PO Current PO diet: Regular Current symptoms: Coughing, c/o Globus sensation Pain: Patient reports, 0/5 - Objective Assessment: Upright, Left Lateral - Food Trials Used Food trials used: Thin liquids, Pureed, Regular The patient: Was Able to Self Feed - Oral-Motor Skills Dentition: Full Laryngeal Function: Volitional Cough - WFL, Volitional Swallow - WFL - Assessment Oral prep: Normal Labial closure: Adequate Leakage: None Mastication: Adequate Lingual Movement: Normal Oral stage: Normal for this Procedure - Pharyngeal Stage Initiation of Pharyngeal Stage Reflex: Normal Decreased laryngeal elevation: No Reduced Velopharyngeal Closure: no Reduced pressure generation: No reduced tongue-based retraction: No Pre-swallow pooling in valleculae: None Pre-Swallow pooling in pyriforms: None Reduced Thyro-Hyoid approximation: No Reduced epiglottic excursion: No Reduced pharyngeal peristalsis/contraction: No Post-swallow residulas vallecular: None Post-Swallow residuals in pyriforms: None Post-Swallow Residuals: no residuals Reduced Cricopharyngeal opening: No - Fall Risk Assessment Medications/Conditions that increase fall risks include: Antidepressants, sedatives, anti-arrhythmic, diuretic, benzodiazipenes, neuroleptics. BP regulation problems, cardiac problems, balance or gait deficits, neurological problems. Fall Risk Actions Taken: No action needed - Behavioral Observations During evaluation process patient: was cooperative, able to answer questions, provided medical history - Treatment / Educational Needs: Treatment/Education Needs: Treatment consisted of patient education on the role of the Speech Pathologist. Patient's plan of care and golas were communicated as well as scheduling and attendance policies. Recommendations for initial home program were shared. Patient demonstrated understanding and verbalized agreement. - Impression/Summary Laryngeal Penetration: No Tracheal Aspiration: no Patient presents with: Normal swallow at eval Risk of Aspiration: Minimal Evaluation and Findings: Patient presents with no oral or pharyngeal swallowing deficits. Due to nature of symptoms, patient may benefit from gastrointestinal consult. General reflux precautions discussed with patient this day. - Recommendations Solid diet recommendations: Regular Liquid Diet Modification: Thin Pt/Family education and followup with MD: Yes Dysphagia therapy with ASSISTANT CHILD CARE TEACHER: no Reflux Precautions: Taught to Patient Recommended techniques: Fully Upright During Meal, Small Bites and Sips Information, Precautions and Recommendations: Patient (Written), Patient (Verbal ) - Plan of Care Strategies to optimize patient understanding include:: ongoing assessment of educational needs, implementation of educational strategies, and re-education. - - -: Thank you for the opportunity to work with this patient and his/her family. Should you have any questions about this patient's plan or progress, I can be reached at [phone]. Charge G Code? - - -: No
--- NOTE | 2017-11-13 11:45 | RADIOLOGY REPORT (SQ) ---
EXAM DESCRIPTION: PEDRO LUIS SWALLOW COMPLETED DATE/TIME: 11/13/2017 8:56 am REASON FOR STUDY: DYSPHAGIA R13.10 DYSPHAGIA, UNSPECIFIED COMPARISON: None. TECHNIQUE: Videofluoroscopic swallowing examination was performed in conjunction with speech patholo gy. Videofluoroscopic imaging was obtained and reviewed and these are the findings: RADIATION DOSE: Total fluoroscopy time: 1 minutes 46 seconds 1 fluoroscopy image saved to PACS. LIMITATIONS: None FINDINGS: The patient was brought into the fluoro room and placed upright on a modified barium swall ow chair. The patient was then given multiple consistencies mixed with barium to swallow under live fluoroscopic video guidance. According to the Speech Pathologist there was no laryngeal penetration or tracheal aspiration. Normal oral and pharyngeal transit time was observed. No significant post s wallow residual was seen. Please see speech pathology report for further details and recommendations . IMPRESSION: NO EVIDENCE OF LARYNGEAL PENETRATION OR TRACHEAL ASPIRATION.PLEASE SEE SPEECH PATHOLOGIS T REPORT FOR OTHER FINDINGS AND RECOMMENDATIONS. COMMENT: Quality ID [id number]: Final reports for procedures using fluoroscopy that document radiation exp osure indices, or exposure time and number of fluorographic images (if radiation exposure indices are not available) TECHNICAL DOCUMENTATION: JOB ID: [id number] [facility]- All Rights Reserved
== END ==
LOC: RAD 08:07
PROVIDERS: ATTEND Physician Assistant
DX: R13.10 Dysphagia, unspecified (principal); K21.9 Gastro-esophageal reflux disease without esophagitis; J90 Pleural effusion, not elsewhere classified
CPT/HCPCS: 74230

== ENCOUNTER 2017-12-12 07:24 | Day surgery (SDC) | payer BC ==
[2017-12-12 08:09] LABS: HEMATOCRIT 39.3 % (36.0-47.0); HEMOGLOBIN 13.3 g/dL (12.0-15.5); MEAN CORPUSCULAR HEMOGLOBIN 29.2 pg (27.0-33.4); MEAN CORPUSCULAR HGB CONC 33.9 g/dL (32.0-36.0); MEAN CORPUSCULAR VOLUME 86 fl (80-97); PLATELET COUNT 284 10^3/uL (150-450); RED BLOOD COUNT 4.56 10^6/uL (3.72-5.28); RED CELL DISTRIBUTION WIDTH 15.1 % (11.5-14.0); WHITE BLOOD COUNT 9.1 10^3/uL (4.0-10.5)
[2017-12-12 08:15] LABS: INTERNATIONAL RATION (INR) 0.89; PROTHROMBIN TIME 12.8 SEC (11.4-15.4)
[2017-12-12 08:16] LABS: PARTIAL THROMBOPLASTIN TIME 30.2 SEC (23.5-35.8)
[2017-12-12 08:24] LABS: BLOOD UREA NITROGEN 20 mg/dL (7-20)
[2017-12-12 09:27] LABS: ABSOLUTE LYMPHOCYTES# (MANUAL) 1.3 10^3/uL (0.5-4.7); ABSOLUTE MONOCYTES # (MANUAL) 0.8 10^3/uL (0.1-1.4); ABSOLUTE NEUTROPHILS# (MANUAL) 6.7 10^3/uL (1.7-8.2); BASOPHILS % (MANUAL) 0 % (0-2); EOSINOPHILS % (MANUAL) 3 % (0-6); LYMPHOCYTES % (MANUAL) 14 % (13-45); MONOCYTES % (MANUAL) 9 % (3-13); SEGMENTED NEUTROPHILS % (MAN) 74 % (42-78); TOTAL CELLS COUNTED 100
[2017-12-12 09:28] LABS: ANISOCYTOSIS SLIGHT; OVALOCYTES SLIGHT; PLATELET COMMENT ADEQUATE; POIKILOCYTOSIS SLIGHT; STOMATOCYTES SLIGHT
--- NOTE | 2017-12-12 10:30 | RADIOLOGY REPORT (SQ) ---
EXAM DESCRIPTION: CHEST SINGLE VIEW COMPLETED DATE/TIME: 12/12/2017 10:20 am REASON FOR STUDY: S/P LEFT THORACENTESIS COMPARISON: Two-view chest 09/28/2017, 11/04/2017 CT chest 09/28/2017 Thoracentesis today EXAM PARAMETERS: NUMBER OF VIEWS: One view. TECHNIQUE: Single frontal radiographic view of the chest acquired. RADIATION DOSE: NA LIMITATIONS: None. FINDINGS: LUNGS AND PLEURA: Post left thoracentesis, with removal of 350 mL of straw-colored fluid f rom the left chest posterior approach. There is no pneumothorax post left thoracentesis. No residua l pleural fluid by plain film. MEDIASTINUM AND HILAR STRUCTURES: No masses. Contour normal. HEART AND VASCULAR STRUCTURES: Stable mild cardiomegaly BONES: No acute findings. HARDWARE: None in the chest. OTHER: No other significant finding. IMPRESSION: No pneumothorax post left thoracentesis TECHNICAL DOCUMENTATION: JOB ID: [id number] [employer]- All Rights Reserved
[2017-12-12 10:39] LABS: TOTAL PROTEIN 7.5 g/dL (6.3-8.2)
[2017-12-12 10:40] LABS: ALBUMIN 4.1 g/dL (3.5-5.0); ANION GAP 11 (5-19); BLOOD UREA NITROGEN 19 mg/dL (7-20); CALCIUM 9.5 mg/dL (8.4-10.2); CARBON DIOXIDE 23 mmol/L (22-30); CHLORIDE 106 mmol/L (98-107); GLUCOSE 134 mg/dL (75-110); PHOSPHORUS 4.1 mg/dL (2.5-4.5); POTASSIUM 4.6 mmol/L (3.6-5.0); SODIUM 139.9 mmol/L (137-145)
--- NOTE | 2017-12-12 10:55 | RADIOLOGY REPORT (SQ) ---
EXAM DESCRIPTION: U/S THORACENTESIS WITH IMAGING COMPLETED DATE/TIME: 12/12/2017 10:13 am REASON FOR STUDY: PLEURAL EFFUSION J90 PLEURAL EFFUSION, NOT ELSEWHERE CLASSIFIED COMPARISON: Chest film 11/04/2017, 09/28/2017 CT chest 09/28/2017 LIMITATIONS: None. PROCEDURE: Procedure, risks, benefit, and alternative explained to patient who then gave written con sent. The posterior left chest wall was marked using ultrasound guidance. A time-out was called for correct marking verification. Chest prepped and draped using sterile technique. Local anesthesia ac hieved using 10 ml of 1% lidocaine injection. A choose 1 was introduced into the posterior left pleu ral space pleural space. Fluid was aspirated. The catheter was removed and the entry site was cover ed with sterile bandage. No immediate complications noted. Post procedure chest x-ray dictated separ ately demonstrates no pneumothorax. Images acquired during the procedure were stored on PACS. FINDINGS: ENTRY SITE: Left posterior pleural space FLUID VOLUME: 350 mL of clear yellow fluid FLUID ANALYSIS: Yes, sent for testing as per the ordering physician OTHER: No immediate complication on post procedure chest film dictated separately IMPRESSION: SUCCESSFUL THORACENTESIS USING ULTRASOUND GUIDANCE. COMMENT: Patient medication list reviewed: Yes- Quality ID# [id number]:Eligible professional attests to doc umenting in the medical record they obtained, updated, or reviewed the patient's current medications. Quality ID #145: Final reports for procedures using fluoroscopy that document radiation exposure judy hannah, or exposure time and number of fluorographic images (if radiation exposure indices are not avail able) TECHNICAL DOCUMENTATION: JOB ID: [id number] [employer]- All Rights Reserved
[2017-12-12] MEDS ORDERED: HYDROCODONE/ACETAMINOPHEN 5-325 MG TABLET ONE (11:10)
[2017-12-12 11:31] LABS: FLUID APPEARANCE SLIGHTLY HAZY; FLUID COLOR LIGHT YELLOW; FLUID SOURCE LUNG; FLUID TYPE PLEURAL; FLUID VISCOSITY LIQUID
--- NOTE | 2017-12-12 12:47 | RADIOLOGY REPORT (SQ) ---
EXAM DESCRIPTION: CHEST SINGLE VIEW COMPLETED DATE/TIME: 12/12/2017 12:38 pm REASON FOR STUDY: 2 HOURS S/P LEFT THORACENTESIS COMPARISON: 12/12/2017, 1020 hours EXAM PARAMETERS: NUMBER OF VIEWS: One view. TECHNIQUE: Single frontal radiographic view of the chest acquired. RADIATION DOSE: NA LIMITATIONS: None. FINDINGS: LUNGS AND PLEURA: 2 hours post left thoracentesis. No pneumothorax. Lungs are clear. No pleural effusions. MEDIASTINUM AND HILAR STRUCTURES: No masses. Contour normal. HEART AND VASCULAR STRUCTURES: Stable mild cardiomegaly BONES: No acute findings. HARDWARE: None in the chest. OTHER: No other significant finding. IMPRESSION: No pneumothorax 2 hours post left thoracentesis. TECHNICAL DOCUMENTATION: JOB ID: [id number] [employer]- All Rights Reserved Reading location - IP/workstation name: [email or web address]
[2017-12-12 13:05] VITALS: BP 105/60
[2017-12-13 13:57] LABS: TOTAL PROTEIN BODY FLUID 3.6 g/dL (.)
== END 2017-12-12 13:00 | disposition home or self-care (01) ==
LOC: RAD 07:24
PROVIDERS: ATTEND Physician Assistant
PROC: 0W983ZZ Drainage of Chest Wall, Percutaneous Approach (ICD-10-PCS; principal; 2017-12-12)
DX: J90 Pleural effusion, not elsewhere classified (principal); J44.9 Chronic obstructive pulmonary disease, unspecified; Z68.43 Body mass index [BMI] 50.0-59.9, adult; G47.19 Other hypersomnia; R13.10 Dysphagia, unspecified
CPT/HCPCS: 32555; 36415; 71045; 80069; 82565; 82945; 83615; 84155; 84157; 84520; 85025; 85610; 85730; 87015; 87070; 87075; 87101; 87116; 87205; 87206; 88305; 89050

== ENCOUNTER → 2018-02-06 | Outpatient (CLI) | payer BC ==
--- NOTE | 2018-02-06 09:17 | RADIOLOGY REPORT (SQ) ---
EXAM DESCRIPTION: CHEST PA/LATERAL COMPLETED DATE/TIME: 02/06/2018 9:01 am REASON FOR STUDY: COUGH COMPARISON: 12/12/2017. EXAM PARAMETERS: NUMBER OF VIEWS: two views TECHNIQUE: Digital Frontal and Lateral radiographic views of the chest acquired. RADIATION DOSE: NA LIMITATIONS: none FINDINGS: LUNGS AND PLEURA: No opacities, masses or pneumothorax. Interval development of small lef t pleural effusion. Pleural effusion. MEDIASTINUM AND HILAR STRUCTURES: No masses or contour abnormalities. HEART AND VASCULAR STRUCTURES: Heart normal size. No evidence for failure. BONES: No acute findings. HARDWARE: None in the chest. OTHER: No other significant finding. IMPRESSION: INTERVAL DEVELOPMENT OF SMALL LEFT PLEURAL EFFUSION. TECHNICAL DOCUMENTATION: JOB ID: [id number] [employer]- All Rights Reserved Reading location - IP/workstation name: [email or web address]
== END ==
LOC: OD 08:51
PROVIDERS: ATTEND Physician Assistant
DX: R05 Cough (principal)
CPT/HCPCS: 71046

== ENCOUNTER 2018-03-04 00:01 | Emergency (ER) | payer BC ==
[2018-03-04] MEDS ORDERED: ASPIRIN 81 MG TABLET, CHEWABLE PO ONE (01:18)
[2018-03-04 02:01] LABS: ABSOLUTE BASOPHILS # (AUTO) 0.1 10^3/uL (0.0-0.2); ABSOLUTE EOSINOPHILS # (AUTO) 0.3 10^3/uL (0.0-0.6); ABSOLUTE LYMPHOCYTES (AUTO) 1.8 10^3/uL (0.5-4.7); ABSOLUTE MONOCYTES (AUTO) 0.8 10^3/uL (0.1-1.4); ABSOLUTE NEUT (AUTO) 8.4 10^3/uL (1.7-8.2); BASOPHILS % (AUTO) 0.8 % (0-2); EOSINOPHILS % (AUTO) 2.7 % (0-6); HEMATOCRIT 40.8 % (36.0-47.0); HEMOGLOBIN 13.7 g/dL (12.0-15.5); LYMPHOCYTES % (AUTO) 16.1 % (13-45); MEAN CORPUSCULAR HEMOGLOBIN 29.3 pg (27.0-33.4); MEAN CORPUSCULAR HGB CONC 33.6 g/dL (32.0-36.0); MEAN CORPUSCULAR VOLUME 87 fl (80-97); MONOCYTES % (AUTO) 6.9 % (3-13); PLATELET COUNT 373 10^3/uL (150-450); RED BLOOD COUNT 4.67 10^6/uL (3.72-5.28); RED CELL DISTRIBUTION WIDTH 15.4 % (11.5-14.0); SEGMENTED NEUTROPHILS % (AUTO) 73.5 % (42-78); TOTAL CELLS COUNTED % (AUTO) 100 %; WHITE BLOOD COUNT 11.4 10^3/uL (4.0-10.5)
[2018-03-04 02:09] LABS: APPEARANCE,URINE SLIGHTLY-CLOUDY; BILIRUBIN,URINE NEGATIVE (NEGATIVE); COLOR,URINE YELLOW; GLUCOSE, URINE NEGATIVE (NEGATIVE); KETONES,URINE NEGATIVE (NEGATIVE); LEUKOCYTE ESTERASE,URINE NEGATIVE (NEGATIVE); NITRITE,URINE NEGATIVE (NEGATIVE); PROTEIN,URINE NEGATIVE (NEGATIVE); URINE SPECIFIC GRAVITY 1.027
[2018-03-04 02:11] LABS: ALANINE AMINOTRANSFERASE 27 U/L (9-52); ALBUMIN 4.3 g/dL (3.5-5.0); ALKALINE PHOSPHATASE 92 U/L (38-126); ANION GAP 16 (5-19); ASPARTATE AMINO TRANSFERASE 15 U/L (14-36); BILIRUBIN,DIRECT 0.4 mg/dL (0.0-0.4); BILIRUBIN,TOTAL 0.5 mg/dL (0.2-1.3); BLOOD UREA NITROGEN 16 mg/dL (7-20); CALCIUM 9.8 mg/dL (8.4-10.2); CARBON DIOXIDE 24 mmol/L (22-30); CHLORIDE 104 mmol/L (98-107); CREATINE KINASE 30 U/L (30-135); GLUCOSE 128 mg/dL (75-110); POTASSIUM 4.3 mmol/L (3.6-5.0); SODIUM 144.3 mmol/L (137-145); TOTAL PROTEIN 7.7 g/dL (6.3-8.2)
--- NOTE | 2018-03-04 02:12 | RADIOLOGY REPORT (SQ) ---
EXAM DESCRIPTION: Single view of the chest CLINICAL HISTORY: CP COMPARISON: 02/06/2018 FINDINGS: Single frontal view of the chest. The cardiomediastinal silhouette has normal size and contour. Blunting of the left costophrenic angle and left basilar opacities are stable. No pneumothorax. No displaced rib fractures identified. Leads overlie the chest. Upper abdominal soft tissues are unremarkable. IMPRESSION: 1. Small left pleural effusion with likely underlying atelectasis or consolidation. No significant interval change.
[2018-03-04 02:22] LABS: TROPONIN I < 0.012 ng/mL
--- NOTE | 2018-03-04 03:32 | ER Document Report ---
ED General <JULIANA GORDON - Last Filed: 03/04/18 03:52> - General Mode of Arrival: Ambulatory Information source: Patient TRAVEL OUTSIDE OF THE [place] IN LAST 30 DAYS: No <NOAH CARO - Last Filed: 03/04/18 03:55> - General Chief Complaint: Chest Pain Stated Complaint: CHEST PAIN Time Seen by Provider: 03/04/18 03:05 Notes: 43-year-old female patient still smokes pack a day, has chronic left pleural effusion early stages of COPD. She saw her pulmonary medicine doctors PA 5 days ago and was put on antibiotics for a productive cough of yellow to green sputum. She comes emergency room tonight complaining of left-sided pain to her chest lateral chest and left scapular back area. It does hurt to breathe and to turn and twist. She did have the effusion drained on 12/12/2017 and pathology report was benign mesothelial cells, macrophages, and chronic inflammatory cells and blood. It was negative for atypia and malignancy. No explanation for the pleural effusion has been offered so far. She states her pulmonary medicine PA is referring her to a herbarium worker to rule out congestive heart failure. (JULIANA GORDON) Patient is a 43 year old female with a history of chronic left pleural effusion and COPD presents to the emergency department complaining of chest pain with associated symptoms of some dizziness and a productive cough with yellowish green sputum onset a few weeks ago worsening today. Patient describes the pain as a sharpness that radiates into the left side of her ribs and back which is exacerbated with breathing. She states it feels as if an electric shock radiated through her chest, ribs, and back. She states she saw her PA at Dr. Mukherjee office and was prescribed antibiotics 5 days ago. Patient had the pleural effusion drained on 2017. The etiology of the effusion is unknown. Patient is currently following up with Dr. Guerrero. Patient currently has a bevespi inhaler as well as a rescue albuterol inhaler and albuterol nebulizers. (NOAH CARO) - Related Data Allergies/Adverse Reactions: codeine Allergy (Mild, Verified 12/12/17 08:46) Generalized Itching Past Medical History - General Information source: Patient, [facility] Records - Social History Smoking Status: Current Every Day Smoker Cigarette use (# per day): Yes - 1/2 pack a day Frequency of alcohol use: Rare Family History: Reviewed & Not Pertinent Pulmonary Medical History: Reports: Hx COPD, Hx Pneumonia - in JANUARY 2017 Endocrine Medical History: Reports: Hx Diabetes Mellitus Type 2 - borderline - Immunizations Hx Diphtheria, Pertussis, Tetanus Vaccination: No <VANIA,CASSHEBER - Last Filed: 03/04/18 03:55> Review of Systems - Review of Systems Constitutional: No symptoms reported EENT: No symptoms reported Cardiovascular: No symptoms reported Respiratory: See HPI, Cough, Hurts to breathe Gastrointestinal: No symptoms reported Genitourinary: No symptoms reported Female Genitourinary: No symptoms reported Musculoskeletal: No symptoms reported Skin: No symptoms reported Hematologic/Lymphatic: No symptoms reported Neurological/Psychological: No symptoms reported -: Yes All other systems reviewed and negative <VANIACASSHEBER Last Filed: 03/04/18 03:55> Physical Exam - General General appearance: Appears well, Alert In distress: None - HEENT Head: Normocephalic, Atraumatic Eyes: Normal Conjunctiva: Normal Extraocular movements intact: Yes Pupils: PERRL Neck: Normal - Respiratory Respiratory status: No respiratory distress Chest status: Tender - Tender to palpation to the left anterior chest wall as well as left lateral ribs. Breath sounds: Normal Chest palpation: Normal - Cardiovascular Rhythm: Regular Heart sounds: Normal auscultation Murmur: No Friction rub: No Gallop: None auscultated - Abdominal Inspection: Obese Distension: No distension Bowel sounds: Normal Tenderness: Nontender Organomegaly: No organomegaly - Back Back: Normal - Extremities General upper extremity: Normal ROM General lower extremity: Normal ROM Shoulder: Tender - Tender to palpation to the left inferior scapular - Neurological Neuro grossly intact: Yes Cognition: Normal Orientation: AAOx4 Garrison Coma Scale Eye Opening: Spontaneous Bynum Coma Scale Verbal: Oriented Bynum Coma Scale Motor: Obeys Commands Bynum Coma Scale Total: 15 Speech: Normal - Psychological Associated symptoms: Normal affect, Normal mood - Skin Skin Temperature: Warm Skin Moisture: Dry Skin Color: Normal <VANIA,CASSHEBER Last Filed: 03/04/18 03:55> - Vital signs Vitals: Temp Pulse Resp BP Pulse Ox 98.6 F 82 16 125/75 97 03/04/18 00:54 03/04/18 00:54 03/04/18 00:54 03/04/18 00:54 03/04/18 00:54 Course - Laboratory Result Diagrams: 03/04/18 01:46 03/04/18 01:46 - Diagnostic Test Radiology reviewed: Reports reviewed - Left pleural effusion, unchanged from - EKG Interpretation by Ct EKG shows normal: Sinus rhythm, [place], Intervals, QRS Complexes, ST-T Waves Rate: Normal - 80 Rhythm: NSR P Waves: LAE When compared to previous EKG there are: No significant change <JULIANA GORDON - Last Filed: 03/04/18 03:52> - Laboratory Result Diagrams: 03/04/18 01:46 03/04/18 01:46 <NOAH CARO - Last Filed: 03/04/18 03:55> - Vital Signs Vital signs: Temp Pulse Resp BP Pulse Ox 98.6 F 82 10 L 133/66 H 98 03/04/18 00:54 03/04/18 00:54 03/04/18 02:01 03/04/18 02:01 03/04/18 02:01 - Laboratory Laboratory results interpreted by tn: 03/04/18 03/04/18 03/04/18 01:46 01:46 01:46 WBC 11.4 H RDW 15.4 H Absolute Neutrophils 8.4 H Glucose 128 H Urine Urobilinogen 2.0 H Discharge <JULIANA GORDON - Last Filed: 03/04/18 03:52> <NOAH CARO - Last Filed: 03/04/18 03:55> - Discharge Clinical Impression: Chest wall pain, Pleural effusion on left Condition: Stable Disposition: HOME, SELF-CARE Additional Instructions: Chest Wall Pain Your chest pain has been diagnosed as coming from the chest wall. This is often caused by straining the muscles or joints in the chest during physical activity, direct trauma, coughing, or vigorous vomiting. Persons with arthritis are especially prone to this type of pain, due to inflammation of the cartilage joints near the breast bone. Occasionally, no cause can be found. Rest from strenuous physical activity. This kind of chest pain is usually made worse by movement of the chest. Depending on the symptoms, we may prescribe medicine for pain, muscle relaxation, and antiinflammatory effects. If the pain is new, and seems to be due to muscle strain, cold packs can help. Otherwise, apply gentle warmth to the painful area for 15 minutes every hour or two. You should contact the doctor immediately if things change. Further evaluation is needed if you develop a fever or cough, if the nature of the pain changes, or if you become short of breath. Take Tylenol and ibuprofen for pain as needed. Try moist heat to the painful muscles in your ribs and chest wall. Rest and limited activity. Follow-up with your primary care provider this week if not improving. RETURN TO THE EMERGENCY ROOM IF ANY NEW OR WORSENING SYMPTOMS. Montserrat Attestation: 03/04/18 03:46 I personally performed the services described in the documentation, reviewed and edited the documentation which was dictated to the scribe in my presence, and it accurately records my words and actions. (JULIANA GORDON) Scribe Documentation - Scribe Written by Montserrat:: Montserrat Holcomb, 03/04/2018 03:37 acting as scribe for :: Alex <NOAH CARO - Last Filed: 03/04/18 03:55>
[2018-03-04 04:10] VITALS: BP 117/63
--- NOTE | 2018-03-04 08:54 | EKG REPORT ---
SEVERITY:- BORDERLINE ECG - SINUS RHYTHM PROBABLE LEFT ATRIAL ABNORMALITY : Confirmed by: Nicolasa Ridley 04-Mar-2018 08:53:51
== END 2018-03-04 04:23 | disposition home or self-care (01) ==
LOC: ER 00:01
DX: J90 Pleural effusion, not elsewhere classified (principal); R07.89 Other chest pain; R07.81 Pleurodynia; J44.9 Chronic obstructive pulmonary disease, unspecified; M54.89 Other dorsalgia; R42 Dizziness and giddiness; R05 Cough; F17.210 Nicotine dependence, cigarettes, uncomplicated; Z71.6 Tobacco abuse counseling; Z79.899 Other long term (current) drug therapy; Z88.5 Allergy status to narcotic agent; Z87.01 Personal history of pneumonia (recurrent)
CPT/HCPCS: 36415; 71045; 80053; 81001; 82550; 82553; 84484; 85025; 93005; 93010; 99285

== ENCOUNTER → 2018-04-14 | Outpatient (CLI) | payer BC ==
--- NOTE | 2018-04-15 11:52 | XCELERA REPORT ---
[address] [address] Transthoracic Echocardiogram Report Name: CARLOTTA BAL Age: 43 yrs Gender: Female : 1975 Patient Status: Outpatient Patient Location: Study Date: 04/14/2018 10:19 AM Height: 63 in Weight: 259 lb BSA: 2.2 m2 Procedure: A complete two-dimensional transthoracic echocardiogram was performed (2D, M-mode, spectral and color flow Doppler). The study was technically adequate with some images being suboptimal in quality. Reason For Study: CHF Ordering Physician: STEPH AL Performed By: Feng Carlton Interpretation Summary The left ventricular ejection fraction is within normal limits. The left ventricle is grossly normal size. There is borderline concentric left ventricular hypertrophy. Doppler measurements suggest pseudonormalized left ventricular relaxation, which is associated with grade II/IV or mild to moderate diastolic dysfunction Wall motion cannot be accurately commented on, but no definite regional wall motion abnormalities noted. The right ventricle is borderline dilated. The right ventricular systolic function is normal. The right atrium is normal in size The left atrium is mildly dilated. There is no mitral valve stenosis. There is a mild amount of mitral regurgitation There is no aortic valve stenosis There is a trace amount of aortic regurgitation There is a trace or physiologic amount of tricuspid regurgitation Tricuspid regurgitation jet envelope not well defined to measure RV systolic pressure accurately. The aortic root is not well visualized but is probably normal size. The inferior vena cava appeared normal and decreased > 50% with respiration (RAP 5-10 mmHg) There is no pericardial effusion. MMode/2D Measurements & Calculations RVDd: 3.8 cm LVIDd: 4.3 cm FS: 31.9 % Ao root diam: 2.8 cm IVSd: 0.66 cm LVIDs: 3.0 cm EDV(Teich): 85.2 ml LVPWd: 0.67 cmESV(Teich): 33.8 ml Ao root area: 6.3 cm2 EF(Teich): 60.3 % LA dimension: 4.1 cm LVOT diam: 2.1 cm LVOT area: 3.4 cm2 Doppler Measurements & Calculations MV E max tomasz: MV P1/2t max tomasz: LV dP/dt: TV V2 max: 106.3 cm/sec 256.5 cm/sec 1515 mmHg/s 207.7 cm/sec MV A max tomasz: MV P1/2t: 127.5 msec TV max P.0 cm/sec MVA(P1/2t): 1.7 cm2 17.3 mmHg MV E/A: 0.74 MV dec slope: 589.4 cm/sec2 MV dec time: 0.27 sec PA V2 max: 78.0 cm/sec PA max P.4 mmHg Left Ventricle The left ventricle is grossly normal size. There is borderline concentric left ventricular hypertrophy. The left ventricular ejection fraction is within normal limits. Doppler measurements suggest pseudonormalized left ventricular relaxation, which is associated with grade II/IV or mild to moderate diastolic dysfunction. Wall motion cannot be accurately commented on, but no definite regional wall motion abnormalities noted. Right Ventricle The right ventricle is borderline dilated. There is normal right ventricular wall thickness. The right ventricular systolic function is normal. Atria The right atrium is normal in size. The left atrium is mildly dilated. Interarterial septum not well visualized and not well dopplered. Cannot comment on ASD/PFO presence. Mitral Valve The mitral valve leaflets are sclerotic, but show no functional abnormalities. There is no mitral valve stenosis. There is a mild amount of mitral regurgitation. Aortic Valve The aortic valve is not well visualized secondary to technical limitations. There is no aortic valve stenosis. There is a trace amount of aortic regurgitation. Tricuspid Valve The tricuspid valve is not well visualized secondary to technical limitations. There is no tricuspid stenosis. There is a trace or physiologic amount of tricuspid regurgitation. Tricuspid regurgitation jet envelope not well defined to measure RV systolic pressure accurately. Pulmonic Valve The pulmonic valve is not well visualized. Great Vessels The aortic root is not well visualized but is probably normal size. The inferior vena cava appeared normal and decreased > 50% with respiration (RAP 5-10 mmHg). Effusions There is no pericardial effusion. : STEPH AL > Nicolasa Ridley
== END ==
LOC: SP 09:48
PROVIDERS: ATTEND Family Medicine Geriatric Medicine
DX: I50.9 Heart failure, unspecified (principal)
CPT/HCPCS: 93306

== ENCOUNTER → 2018-04-28 | Outpatient (CLI) | payer BC ==
[2018-04-28 15:35] LABS: ABSOLUTE EOSINOPHILS # (AUTO) 0.2 10^3/uL (0.0-0.6); ABSOLUTE LYMPHOCYTES (AUTO) 1.3 10^3/uL (0.5-4.7); ABSOLUTE MONOCYTES (AUTO) 0.5 10^3/uL (0.1-1.4); ABSOLUTE NEUT (AUTO) 5.9 10^3/uL (1.7-8.2); BASOPHILS % (AUTO) 0.6 % (0-2); EOSINOPHILS % (AUTO) 2.9 % (0-6); HEMATOCRIT 39.3 % (36.0-47.0); HEMOGLOBIN 13.5 g/dL (12.0-15.5); MEAN CORPUSCULAR HEMOGLOBIN 29.7 pg (27.0-33.4); MEAN CORPUSCULAR HGB CONC 34.3 g/dL (32.0-36.0); MEAN CORPUSCULAR VOLUME 87 fl (80-97); MONOCYTES % (AUTO) 6.1 % (3-13); PLATELET COUNT 301 10^3/uL (150-450); RED BLOOD COUNT 4.54 10^6/uL (3.72-5.28); RED CELL DISTRIBUTION WIDTH 15.7 % (11.5-14.0); SEGMENTED NEUTROPHILS % (AUTO) 74.4 % (42-78); TOTAL CELLS COUNTED % (AUTO) 100 %; WHITE BLOOD COUNT 7.9 10^3/uL (4.0-10.5)
--- NOTE | 2018-04-28 16:23 | RADIOLOGY REPORT (SQ) ---
EXAM DESCRIPTION: CHEST PA/LATERAL COMPLETED DATE/TIME: 04/28/2018 2:56 pm REASON FOR STUDY: COUGH COMPARISON: 03/04/2018 EXAM PARAMETERS: NUMBER OF VIEWS: two views TECHNIQUE: Digital Frontal and Lateral radiographic views of the chest acquired. RADIATION DOSE: NA LIMITATIONS: none FINDINGS: LUNGS AND PLEURA: Left pleural effusion. Right lung is clear. MEDIASTINUM AND HILAR STRUCTURES: No masses or contour abnormalities. HEART AND VASCULAR STRUCTURES: Heart normal size. No evidence for failure. BONES: No acute findings. HARDWARE: None in the chest. OTHER: No other significant finding. IMPRESSION: Left pleural effusion. TECHNICAL DOCUMENTATION: JOB ID: [id number] [employer]- All Rights Reserved Reading location - IP/workstation name: [email or web address]
[2018-04-28 16:28] LABS: ALANINE AMINOTRANSFERASE 22 U/L (9-52); ALKALINE PHOSPHATASE 88 U/L (38-126); ANION GAP 13 (5-19); ASPARTATE AMINO TRANSFERASE 16 U/L (14-36); BILIRUBIN,DIRECT 0.4 mg/dL (0.0-0.4); BILIRUBIN,TOTAL 0.5 mg/dL (0.2-1.3); BLOOD UREA NITROGEN 12 mg/dL (7-20); CALCIUM 9.5 mg/dL (8.4-10.2); CARBON DIOXIDE 27 mmol/L (22-30); CHLORIDE 104 mmol/L (98-107); CHOLESTEROL 232.36 mg/dL (0-200); GLUCOSE 112 mg/dL (75-110); POTASSIUM 4.4 mmol/L (3.6-5.0); SODIUM 144.2 mmol/L (137-145); TOTAL PROTEIN 7.7 g/dL (6.3-8.2); TRIGLYCERIDES 205 mg/dL (<150)
[2018-04-28 16:39] LABS: DIRECT LDL 154 mg/dL (<100)
[2018-04-29 12:39] LABS: CREATININE URINE 156.6 mg/dL (Not Estab.); MICROALBUMIN URINE 4.9 ug/mL (Not Estab.)
== END ==
LOC: OD 14:25
PROVIDERS: ATTEND Family Medicine Geriatric Medicine
DX: E11.9 Type 2 diabetes mellitus without complications (principal); I10 Essential (primary) hypertension; J44.9 Chronic obstructive pulmonary disease, unspecified; E66.9 Obesity, unspecified; R05 Cough; J90 Pleural effusion, not elsewhere classified
CPT/HCPCS: 36415; 71046; 80053; 80061; 82043; 82570; 83036; 84443; 85025

== ENCOUNTER → 2018-06-16 | Outpatient (CLI) | payer BC ==
--- NOTE | 2018-06-16 13:02 | RADIOLOGY REPORT (SQ) ---
EXAM DESCRIPTION: CHEST PA/LATERAL COMPLETED DATE/TIME: 06/16/2018 12:25 pm REASON FOR STUDY: PLEURAL EFFUSION, NOT ELSEWHERE CLASSIFIED COMPARISON: CT chest 09/28/2017 Two-view chest 11/04/2017, 02/06/2018, 04/28/2018 EXAM PARAMETERS: NUMBER OF VIEWS: two views TECHNIQUE: Digital Frontal and Lateral radiographic views of the chest acquired. RADIATION DOSE: NA LIMITATIONS: none FINDINGS: LUNGS AND PLEURA: Chronic blunting left lateral costophrenic sulcus from small pleural eff usion. This is similar compared to previous studies dating back to 09/28/2017. Left retrocardiac atelectasis is present. Right hemithorax unremarkable. No pneumothorax MEDIASTINUM AND HILAR STRUCTURES: No masses or contour abnormalities. HEART AND VASCULAR STRUCTURES: No cardiomegaly BONES: No acute findings. HARDWARE: None in the chest. OTHER: No other significant finding. IMPRESSION: Chronic blunting left lateral costophrenic sulcus from small pleural effusion TECHNICAL DOCUMENTATION: JOB ID: [id number] [employer]- All Rights Reserved Reading location - IP/workstation name: [email or web address]
== END ==
LOC: OD 11:45
PROVIDERS: ATTEND Physician Assistant
DX: J90 Pleural effusion, not elsewhere classified (principal)
CPT/HCPCS: 71046

== ENCOUNTER → 2018-06-16 | Outpatient (CLI) | payer BC ==
[2018-06-16 14:46] LABS: CHLAM PCR NOT DETECTED (NOT DETECT); GON PCR NOT DETECTED (NOT DETECT)
[2018-06-17 06:39] LABS: HEPATITIS C VIRUS AB <0.1 s/co ratio (0.0-0.9)
[2018-06-17 14:53] LABS: HEPATITIS B SURFACE AB QUAL Non Reactive (.); HEPATITS B SURFACE ANTIGEN Negative (Negative)
== END ==
LOC: OD 11:49
PROVIDERS: ATTEND Family Medicine
DX: Z11.3 Encounter for screening for infections with a predominantly sexual mode of transmission (principal)
CPT/HCPCS: 36415; 86592; 86701; 86706; 86803; 86804; 87340; 87491; 87591

== ENCOUNTER 2018-07-16 12:37 | Emergency (ER) | payer BC ==
--- NOTE | 2018-07-16 13:25 | ER Document Report ---
ED Medical Screen (RME) - General Chief Complaint: Psych Problem Stated Complaint: PSYCH EVAL Time Seen by Provider: 07/16/18 13:16 Notes: 43 years old female with a history of bipolar disorder presents today with increased urge first sexual activity to the point of harming herself. TRAVEL OUTSIDE OF THE [place] IN LAST 30 DAYS: No - Related Data Allergies/Adverse Reactions: codeine Allergy (Mild, Verified 12/12/17 08:46) Generalized Itching Past Medical History - Past Medical History Cardiac Medical History: Denies: Hx Coronary Artery Disease, Hx Heart Attack, Hx Hypertension Pulmonary Medical History: Reports: Hx COPD, Hx Pneumonia - in JANUARY 2017 Denies: Hx Bronchitis Neurological Medical History: Denies: Hx Cerebrovascular Accident, Hx Seizures Endocrine Medical History: Reports: Hx Diabetes Mellitus Type 2 - borderline Renal/ Medical History: Denies: Hx Peritoneal Dialysis Musculoskeltal Medical History: Denies Hx Arthritis - Immunizations Hx Diphtheria, Pertussis, Tetanus Vaccination: No History of Influenza Vaccine for 07/2017 - 12/2017 Season: Yes Influenza Administration Date for 07/2017 - 12/2017 Season: 11/20/17 Physical Exam - Vital signs Vitals: Temp Pulse Resp BP Pulse Ox 98.6 F 75 18 136/69 H 94 07/16/18 12:45 07/16/18 12:45 07/16/18 12:45 07/16/18 12:45 07/16/18 12:45 Course - Vital Signs Vital signs: Temp Pulse Resp BP Pulse Ox 98.6 F 75 18 136/69 H 94 07/16/18 12:45 07/16/18 12:45 07/16/18 12:45 07/16/18 12:45 07/16/18 12:45 Doctor's Discharge - Discharge Referrals: KARLA YOON MD [Primary Care Provider] - Follow up as needed
[2018-07-16 13:59] LABS: ABSOLUTE EOSINOPHILS # (AUTO) 0.2 10^3/uL (0.0-0.6); ABSOLUTE LYMPHOCYTES (AUTO) 1.3 10^3/uL (0.5-4.7); ABSOLUTE MONOCYTES (AUTO) 0.4 10^3/uL (0.1-1.4); ABSOLUTE NEUT (AUTO) 6.8 10^3/uL (1.7-8.2); BASOPHILS % (AUTO) 0.5 % (0-2); EOSINOPHILS % (AUTO) 1.9 % (0-6); HEMATOCRIT 37.4 % (36.0-47.0); HEMOGLOBIN 12.6 g/dL (12.0-15.5); LYMPHOCYTES % (AUTO) 14.5 % (13-45); MEAN CORPUSCULAR HEMOGLOBIN 29.6 pg (27.0-33.4); MEAN CORPUSCULAR HGB CONC 33.7 g/dL (32.0-36.0); MEAN CORPUSCULAR VOLUME 88 fl (80-97); MONOCYTES % (AUTO) 5.1 % (3-13); PLATELET COUNT 296 10^3/uL (150-450); RED BLOOD COUNT 4.26 10^6/uL (3.72-5.28); TOTAL CELLS COUNTED % (AUTO) 100 %; WHITE BLOOD COUNT 8.7 10^3/uL (4.0-10.5)
[2018-07-16 14:02] LABS: APPEARANCE,URINE SLIGHTLY-CLOUDY; BILIRUBIN,URINE NEGATIVE (NEGATIVE); COLOR,URINE YELLOW; GLUCOSE, URINE NEGATIVE (NEGATIVE); KETONES,URINE NEGATIVE (NEGATIVE); LEUKOCYTE ESTERASE,URINE NEGATIVE (NEGATIVE); NITRITE,URINE NEGATIVE (NEGATIVE); PROTEIN,URINE NEGATIVE (NEGATIVE); URINE SPECIFIC GRAVITY 1.024
[2018-07-16 14:21] LABS: ALANINE AMINOTRANSFERASE 27 U/L (9-52); ALBUMIN 3.7 g/dL (3.5-5.0); ALKALINE PHOSPHATASE 82 U/L (38-126); ANION GAP 8 (5-19); ASPARTATE AMINO TRANSFERASE 13 U/L (14-36); BILIRUBIN,DIRECT 0.3 mg/dL (0.0-0.4); BILIRUBIN,TOTAL 0.7 mg/dL (0.2-1.3); BLOOD UREA NITROGEN 12 mg/dL (7-20); CALCIUM 9.5 mg/dL (8.4-10.2); CARBON DIOXIDE 27 mmol/L (22-30); CHLORIDE 106 mmol/L (98-107); GLUCOSE 90 mg/dL (75-110); POTASSIUM 4.3 mmol/L (3.6-5.0); SODIUM 140.5 mmol/L (137-145); TOTAL PROTEIN 7.1 g/dL (6.3-8.2)
[2018-07-16 14:22] LABS: URINE AMPHETAMINES SCREEN NEGATIVE; URINE BARBITURATES SCREEN NEGATIVE; URINE BENZODIAZEPINES SCREEN NEGATIVE; URINE COCAINE SCREEN NEGATIVE; URINE MARIJUANA (THC) SCREEN NEGATIVE; URINE METHADONE SCREEN NEGATIVE; URINE PHENCYCLIDINE SCREEN NEGATIVE
[2018-07-16 14:23] LABS: ACETAMINOPHEN < 10 ug/mL (10-30); ALCOHOL < 10 mg/dL (NONE DETECTED); SALICYLATE < 1.0 mg/dL (2.0-20.0)
--- NOTE | 2018-07-16 14:39 | ER Document Report ---
ED General <CHOLO GRESHAM - Last Filed: 07/16/18 15:24> - General TRAVEL OUTSIDE OF THE [place] IN LAST 30 DAYS: No <CAILIN HERRING - Last Filed: 07/16/18 15:47> - General Chief Complaint: Psych Problem Stated Complaint: PSYCH EVAL Time Seen by Provider: 07/16/18 13:16 Notes: Patient is a 43-year-old female with bipolar disorder that presents to the emergency department for chief complaint of feeling manic, and having desire for sexual relations. Patient states of the last 2 weeks, she has been having obsessive thoughts over having sexual relations with someone, no one in particular, she states that she is fearful that she will participate in high risk sexual behavior, due to her strong desire for this. She reports last time she had these feelings was 6-8 years ago, at that time she was on medications. And she was . She states that now she is not , she is fearful that she will go out and do something risky, which could potentially cause her harm. She is currently taking Wellbutrin, denies being on any antipsychotic or mood stabilizer at this time. She reports previously being on Seroquel which was over 6 years ago. Denies suicidal homicidal ideations. Past Medical History: Bipolar disorder, COPD, pleural effusions Past Surgical History: Thoracentesis Social History: Admits to smoking cigarettes, and occasional alcohol use, denies illicit drug use. Family History: Reviewed and noncontributory for presenting illness Allergies: Reviewed, see documented allergy list. REVIEW OF SYSTEMS: Unless otherwise stated in this report the patient's positive and negative responses for review of systems for constitutional, eyes, ENT, cardiovascular, respiratory, gastrointestinal, neurological, genitourinary, musculoskeletal, and integumentary systems and related systems to the presenting problem are either as stated in the HPI or were not pertinent or were negative for the symptoms and/or complaints related to the presenting medical problem. PHYSICAL EXAMINATION: Vital signs reviewed, nursing noted reviewed. GENERAL: Well-appearing, well-nourished and in no acute distress. HEAD: Atraumatic, normocephalic. EYES: Eyes appear normal, extraocular movements intact, sclera anicteric, conjunctiva are normal. ENT: nares patent, oropharynx clear without exudates. Moist mucous membranes. NECK: Normal range of motion, supple without lymphadenopathy LUNGS: Breath sounds clear to auscultation bilaterally and equal. No wheezes rales or rhonchi. HEART: Regular rate and rhythm without murmurs ABDOMEN: Soft, nontender, normoactive bowel sounds. No rebound, guarding, or rigidity. No masses appreciated. EXTREMITIES: Nontender, good range of motion, no pitting or edema. NEUROLOGICAL: No focal neurological deficits. Moves all extremities spontaneously Motor and sensory grossly intact on exam. PSYCH: Normal mood, slightly pressured speech, poor judgment, and insight SKIN: Warm, Dry, normal turgor, no rashes or lesions noted on exposed skin (CAILIN HERRING) - Related Data Allergies/Adverse Reactions: codeine Allergy (Mild, Verified 12/12/17 08:46) Generalized Itching Past Medical History - Social History Smoking Status: Current Every Day Smoker Frequency of alcohol use: Occasional Drug Abuse: None Family History: Reviewed & Not Pertinent Patient has suicidal ideation: No Patient has homicidal ideation: No - Past Medical History Cardiac Medical History: Denies: Hx Coronary Artery Disease, Hx Heart Attack, Hx Hypertension Pulmonary Medical History: Reports: Hx COPD, Hx Pneumonia - in JANUARY 2017 Denies: Hx Bronchitis Neurological Medical History: Denies: Hx Cerebrovascular Accident, Hx Seizures Endocrine Medical History: Reports: Hx Diabetes Mellitus Type 2 - borderline Renal/ Medical History: Denies: Hx Peritoneal Dialysis Musculoskeletal Medical History: Denies Hx Arthritis Past Surgical History: Reports: Hx Cholecystectomy, Hx Gynecologic Surgery - partial hysterectomy, Hx Tonsillectomy, Hx Tubal Ligation - Immunizations Hx Diphtheria, Pertussis, Tetanus Vaccination: No <CAILIN HERRING - Last Filed: 07/16/18 15:47> - Vital signs Vitals: Temp Pulse Resp BP Pulse Ox 98.6 F 75 18 136/69 H 94 07/16/18 12:45 07/16/18 12:45 07/16/18 12:45 07/16/18 12:45 07/16/18 12:45 Course - Laboratory Result Diagrams: 07/16/18 13:40 07/16/18 13:40 <CHOLO GRESHAM - Last Filed: 07/16/18 15:24> - Laboratory Result Diagrams: 07/16/18 13:40 07/16/18 13:40 <CAILIN HERRING - Last Filed: 07/16/18 15:47> - Re-evaluation Re-evalutation: Patient seen and examined vital signs reviewed. Patint was evaluated and treated as appropriate for the patient's presenting symptoms and complaint, with consideration of any critical or life threatening conditions that may be associated with their obtained history and exam as noted above. The patient was re-evaluated and was stable, blood work was reviewed, and unremarkable Evaluation was most consistent with mental disorder, patient is not acutely psychotic, not demonstrating any suicidal or homicidal behaviors or ideations at this time. Plan of care was discussed with the patient at this point, after careful consideration I feel that that patient can be discharged from the emergency department, the patient was educated treatments and reasons to return to the emergency department based on their presumed diagnosis as noted above, they were advised to followup with a primary care physician in 2-3 days. Patient was agreeable to plan of care. *Note is created using voice recognition software and may contain spelling, syntax or grammatical errors. (CAILIN HERRING) - Vital Signs Vital signs: Temp Pulse Resp BP Pulse Ox 98.6 F 75 18 136/69 H 94 07/16/18 12:45 07/16/18 12:45 07/16/18 12:45 07/16/18 12:45 07/16/18 12:45 - Laboratory Laboratory results interpreted by me: 07/16/18 07/16/18 07/16/18 13:40 13:40 13:47 RDW 16.0 H AST 13 L Urine Urobilinogen 2.0 H Salicylates < 1.0 L Acetaminophen < 10 L - EKG Interpretation by Me Additional EKG results interpreted by me: EKG demonstrates sinus rhythm with a ventricular rate of 71 bpm, normal axis, normal intervals, minimal T wave inversions in V2 and V3, no ST changes noted, no prior EKG for comparison. (CAILIN HERRING) Discharge <CHOLO GRESHAM - Last Filed: 07/16/18 15:24> <CAILIN HERRING - Last Filed: 07/16/18 15:47> - Discharge Clinical Impression: Bipolar disorder, unspecified Qualifiers: Active/Remission status: remission status unspecified Qualified Code(s): F31.9 - Bipolar disorder, unspecified Condition: Stable Disposition: HOME, SELF-CARE Instructions: Bipolar Disorder ([facility]) Additional Instructions: You have been evaluated by both medical and behavioral health teams and if deemed appropriate for discharge. You are recommended to continue with your outpatient mental health appointment on July 27 with DAVID Duron. Bipolar Disorder Bipolar disorder is also called manic-depressive disorder. Depression alternates with brain hyperactivity called sana. Each phase lasts from several days to a few weeks. We don't know exactly what causes bipolar disorder , but it's treatable. During the "manic phase," you may feel elated and energetic. You may have racing thoughts, rapid speech, increased activity, and grandiose ideas. During this time, you may not realize how poor your judgement is. Inappropriate spending, drug abuse, excessive alcohol use, marriage problems, and irresponsible sexual behavior are common during the manic phase. During the "depressive phase," you might feel depressed, guilty, worthless , fatigued, and unable to concentrate. You might have thoughts of suicide. Good treatments are available for bipolar disorder. Bucks is a classic drug for bipolar disorder, and is still often useful. If the manic phase is very mild, an antidepressant alone can be prescribed. If the manic phase is very severe, an antipsychotic medicine (such as Haldol) may be needed. The treatment must be matched to your symptoms, so it's important to work closely with your psychiatric care provider. Contact your physician, the hospital emergency center, crisis line, or your counsellor if you are losing control or having self-destructive thoughts. Referrals: KARLA YOON MD [Primary Care Provider] - Follow up as needed
--- NOTE | 2018-07-16 14:40 | EKG REPORT ---
SEVERITY:- ABNORMAL ECG - SINUS RHYTHM PROBABLE LEFT ATRIAL ABNORMALITY NONSPECIFIC T ABNORMALITIES, ANTERIOR LEADS : Confirmed by: Lily Callahan MD 16-Jul-2018 14:39:42
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
[2018-07-16 16:13] VITALS: BP 127/75
== END 2018-07-16 16:13 | disposition home or self-care (01) ==
LOC: ER 12:37
DX: F31.9 Bipolar disorder, unspecified (principal); Z79.899 Other long term (current) drug therapy; J44.9 Chronic obstructive pulmonary disease, unspecified; F17.210 Nicotine dependence, cigarettes, uncomplicated; Z88.5 Allergy status to narcotic agent
CPT/HCPCS: 36415; 80053; 80307; 81001; 81025; 85025; 93005; 93010; 99285

== ENCOUNTER → 2018-08-03 | Outpatient (CLI) | payer BC ==
[2018-08-03 13:52] LABS: ABSOLUTE EOSINOPHILS # (AUTO) 0.1 10^3/uL (0.0-0.6); ABSOLUTE LYMPHOCYTES (AUTO) 1.2 10^3/uL (0.5-4.7); ABSOLUTE MONOCYTES (AUTO) 0.5 10^3/uL (0.1-1.4); ABSOLUTE NEUT (AUTO) 6.9 10^3/uL (1.7-8.2); BASOPHILS % (AUTO) 0.5 % (0-2); EOSINOPHILS % (AUTO) 1.5 % (0-6); HEMATOCRIT 37.9 % (36.0-47.0); LYMPHOCYTES % (AUTO) 14.1 % (13-45); MEAN CORPUSCULAR HEMOGLOBIN 29.7 pg (27.0-33.4); MEAN CORPUSCULAR HGB CONC 34.2 g/dL (32.0-36.0); MEAN CORPUSCULAR VOLUME 87 fl (80-97); MONOCYTES % (AUTO) 5.6 % (3-13); PLATELET COUNT 329 10^3/uL (150-450); RED BLOOD COUNT 4.37 10^6/uL (3.72-5.28); SEGMENTED NEUTROPHILS % (AUTO) 78.3 % (42-78); TOTAL CELLS COUNTED % (AUTO) 100 %; WHITE BLOOD COUNT 8.8 10^3/uL (4.0-10.5)
[2018-08-03 14:16] LABS: ALANINE AMINOTRANSFERASE 21 U/L (9-52); ALBUMIN 3.9 g/dL (3.5-5.0); ALKALINE PHOSPHATASE 79 U/L (38-126); ANION GAP 10 (5-19); ASPARTATE AMINO TRANSFERASE 13 U/L (14-36); BILIRUBIN,DIRECT 0.3 mg/dL (0.0-0.4); BILIRUBIN,TOTAL 0.8 mg/dL (0.2-1.3); BLOOD UREA NITROGEN 12 mg/dL (7-20); CALCIUM 9.6 mg/dL (8.4-10.2); CARBON DIOXIDE 26 mmol/L (22-30); CHLORIDE 104 mmol/L (98-107); CHOLESTEROL 236.58 mg/dL (0-200); GLUCOSE 106 mg/dL (75-110); POTASSIUM 4.4 mmol/L (3.6-5.0); TOTAL PROTEIN 7.6 g/dL (6.3-8.2); TRIGLYCERIDES 164 mg/dL (<150)
[2018-08-03 14:27] LABS: DIRECT LDL 152 mg/dL (<100)
[2018-08-03 14:30] LABS: VLDL CHOLESTEROL 32.8 mg/dL (10-31)
== END ==
LOC: OD 13:18
PROVIDERS: ATTEND Nurse Practitioner Psychiatric/Mental Health
DX: F31.9 Bipolar disorder, unspecified (principal); F60.3 Borderline personality disorder; G47.00 Insomnia, unspecified; G47.30 Sleep apnea, unspecified
CPT/HCPCS: 36415; 80053; 80061; 84443; 85025

== ENCOUNTER → 2018-09-02 | Outpatient (CLI) | payer BC ==
[2018-09-02 11:51] LABS: APPEARANCE,URINE SLIGHTLY-CLOUDY; BILIRUBIN,URINE NEGATIVE (NEGATIVE); COLOR,URINE YELLOW; GLUCOSE, URINE NEGATIVE (NEGATIVE); KETONES,URINE NEGATIVE (NEGATIVE); LEUKOCYTE ESTERASE,URINE NEGATIVE (NEGATIVE); NITRITE,URINE NEGATIVE (NEGATIVE); PROTEIN,URINE NEGATIVE (NEGATIVE); UROBILINOGEN,URINE NEGATIVE mg/dL (<2.0)
== END ==
LOC: OD 10:39
PROVIDERS: ATTEND Family Medicine
DX: R73.9 Hyperglycemia, unspecified (principal); Z87.448 Personal history of other diseases of urinary system
CPT/HCPCS: 36415; 81001; 83036

== ENCOUNTER → 2018-09-24 | Outpatient (CLI) | payer BC ==
[2018-09-24 13:38] LABS: GON PCR NOT DETECTED (NOT DETECT)
[2018-09-24 13:39] LABS: CHLAM PCR NOT DETECTED (NOT DETECT)
[2018-09-25 07:42] LABS: HEPATITIS C VIRUS AB <0.1 s/co ratio (0.0-0.9)
[2018-09-25 11:26] LABS: HEPATITS B SURFACE ANTIGEN Negative (Negative)
== END ==
LOC: OD 11:28
PROVIDERS: ATTEND Family Medicine
DX: Z72.51 High risk heterosexual behavior (principal)
CPT/HCPCS: 36415; 86592; 86701; 86803; 86804; 87340; 87491; 87591